=== PATIENT | male | born 1970 | race Caucasian/White ===

== ENCOUNTER → 2021-05-15 10:46 | Outpatient (CLI) | payer SELFPAY ==
--- NOTE | ~2021-05-15 | CT_ITS ---
EXAMINATION: CT chest high resolution wo nd DATE: 05/15/2021 11:22 INDICATION: Weight loss TECHNIQUE: Computed tomography (CT) of the chest was performed without intravenous contrast. The dose -length product (DLP) was 218.53 mGy-cm. Automated exposure control and iterative reconstruction tech nique were employed. COMPARISON: None FINDINGS: There is moderate emphysema. There is a 5 mm nodule of the right lower lobe on image 50. Th e lungs are free of acute opacities. There is no pleural effusion or pneumothorax. Bilateral gynecoma stia is noted. No pathologically enlarged thoracic lymph nodes are identified. The heart size is norm al. There is moderate thoracic spondylosis. IMPRESSION: 1. No CT correlate for weight loss. 2. Moderate emphysema. 3. 5 mm nodule of the right lower lobe. Consider follow-up CT in 12 months. Reviewed, dictated and finalized at location B.
== END ==
PROVIDERS: PCP Internal Medicine; Visit Provider Physician Assistant
DX: R63.4 Abnormal weight loss (principal); J43.9 Emphysema, unspecified; R91.8 Other nonspecific abnormal finding of lung field
CPT/HCPCS: 71250

== ENCOUNTER → 2021-06-02 01:47 | Outpatient (CLI) | payer SELFPAY ==
[2021-06-02 17:56] LABS: SARS-CoV-2 RNA PCR Negative
== END ==
PROVIDERS: PCP Internal Medicine; Visit Provider Internal Medicine
DX: B34.9 Viral infection, unspecified (principal); Z20.822 Contact with and (suspected) exposure to COVID-19
CPT/HCPCS: C9803; U0003; U0005

== ENCOUNTER → 2021-07-08 02:47 | Outpatient (CLI) | payer SELFPAY ==
[2021-07-09 02:21] LABS: SARS-CoV-2 RNA PCR Negative
== END ==
PROVIDERS: PCP Internal Medicine; Visit Provider Internal Medicine
DX: R06.00 Dyspnea, unspecified (principal); Z20.822 Contact with and (suspected) exposure to COVID-19
CPT/HCPCS: C9803; U0003; U0005

== ENCOUNTER → 2022-05-17 10:02 | Outpatient (CLI) | payer SELFPAY ==
--- NOTE | ~2022-05-17 | CT_ITS ---
EXAMINATION: CT lung screening DATE: 05/17/2022 10:16 INDICATION: Personal history of nicotine dependence, current smoker with 42 pack year history TECHNIQUE: Computed tomography (CT) of the chest was performed without intravenous contrast. The dose -length product (DLP) was 67.14 mGy-cm. Automated exposure control and iterative reconstruction techn [employer] were employed. COMPARISON: 05/15/2021 FINDINGS: There is a stable 5 mm nodule in the superior segment of the right lower lobe. No new pulmo nary nodules are identified. There is moderate emphysema. The lungs are free of acute opacities. No p athologically enlarged thoracic lymph nodes are identified. The heart size is normal. No pleural effu yevgeniy or pneumothorax. Bilateral gynecomastia is noted. There is moderate thoracic spondylosis. IMPRESSION: 1. Lung-RADS category 2: Benign appearance or behavior. Continue annual screening with noncontrast lo w-dose chest CT in 12 months. Reviewed, dictated and finalized at location B. E QA TESTER IMPRESSION: 1. Lung-RADS category 2: Benign appearance or behavior. Continue annual screeni ng with noncontrast low-dose chest CT in 12 months.
== END ==
PROVIDERS: PCP Physician Assistant; Visit Provider Nurse Practitioner Family
DX: Z12.2 Encounter for screening for malignant neoplasm of respiratory organs (principal); Z87.891 Personal history of nicotine dependence
CPT/HCPCS: 71271

== ENCOUNTER 2022-08-04 07:26 | Outpatient (CLI) | payer MEDICAID, SELFPAY ==
--- NOTE | 2022-08-04 14:32 | WPDPFTINT ---
PFT Procedure Performed PFT Procedure Performed Spirometry with Pre/Post Bronchodilator Plethysmography (Lung Vol) Diffusing Cap (DLCO) Flow Vol Loop PFT Interpretation Lung volumes were measured with the body plethysmography method. Lung volumes are unremarkable. Spirometry showed diminished expiratory flow rates and a diminished FEV1 to FVC ratio 45%, indicative of obstructive airway disease. Following administration of a bronchodilator there was no significant increase in expiratory flow rates. Lung diffusion capacity is moderately reduced at 49% predicted. The flow volume loop is consistent with emphysema. Impression: Moderate obstructive airway disease with no response to bronchodilators on this testing. Moderately reduced lung diffusion capacity.
--- NOTE | 2022-08-04 14:33 | WPDSIXMINUTE ---
Six Minute Walk Procedure Procedure Performed Pulmonary Stress Test (6 min walk) Six Minute Walk Six Minute Walk: This 6 minute walk test was carried out with the patient breathing ambient air. The pre walk oxyhemoglobin saturation was 100%. The patient walked 304 m with no stops during testing. During the walk the oxyhemoglobin saturation remained in the range of 95% to 100%. Impression: No evidence of oxyhemoglobin desaturation on this testing.
== END 2022-08-04 07:27 | disposition home or self-care (01) ==
LOC: ANHPFT 07:27
PROVIDERS: PCP Physician Assistant; Visit Provider Internal Medicine Pulmonary Disease
DX: J43.9 Emphysema, unspecified (principal); R94.2 Abnormal results of pulmonary function studies
CPT/HCPCS: 94060; 94618; 94726; 94729

== ENCOUNTER 2022-09-07 00:06 | Day surgery (SDC) | payer MEDICAID, SELFPAY ==
[2022-08-23 11:41] VITALS: BMI 20.9
--- NOTE | 2022-09-06 09:31 | WPDANESEPPF ---
Anes - Initial Pre Proc Eval Procedure: Operation Date: 09/07/22 09:00 Proposed Procedures p Colonoscopy - Willard Canela MD Date/Time: 09/06/22 09:31 Surgeon: Willard Canela MD Pre Op Diagnosis: melena Patient Data Age: 52 Gender: M Height: 1.79 m Weight: 67 kg Allergies Allergy/AdvReac Type Severity Reaction Status Date / Time No Known Allergies Allergy Verified 09/07/22 07:42 Home Medications Medication Instructions Recorded Confirmed Type nebulizer accessories #1 ea 10/09/21 09/07/22 Rx trazodone 150 mg tablet 150 mg PO DAILY #90 tabs 03/29/22 09/07/22 Rx albuterol sulfate 90 mcg/actuation 1 - 2 puff inhalation Q4-6H PRN 04/12/22 09/07/22 Rx aerosol inhaler (Ventolin HFA) shortness of breath or wheezing #8.5 grams ipratropium 0.5 mg-albuterol 3 mg See Rx Instructions .Route 07/26/22 09/07/22 Rx (2.5 mg base)/3 mL nebulization .COMPLEX #360 mL soln fluticasone fur. 100 mcg-umeclid 1 inh inhalation DAILY #60 ea 08/25/22 09/07/22 Rx 62.5 mcg-vilant 25 mcg inhalat.powder (Trelegy Ellipta) Patient hx anesthesia problems: none Family hx anesthesia problems: none Results Review: All pre-operative results and documents have been reviewed as part of the pre-operative evaluation. 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 Surgical History Surgical History History of hernia repair Family History Family History Sibling Hypertension Father Family history of cardiovascular disease Patient's father is Acute myocardial infarction Mother Cerebrovascular accident Social History Social History Smoking packs per day: 1 Smoking cigarettes per day: 20.0 Years smoked: 40 Smoking pack-years: 40.00 Smoking status: Current every day smoker Tobacco type: cigarettes Second hand tobacco smoke exposure: No Alcohol intake: never Substance use type: marijuana Other substance usage details: Daily PRN Pain, Edible, Smoke Lack of Transportation: No Lack of Food: Sometimes True Current Housing: I Have Housing Concerned About Future Housing: No Difficulty Paying for Meds: No Currently Unemployed: No Education: High School Diploma/GED Difficulty w/ Childcare or Family Care: No Living arrangements: alone Spiritual care concerns: No Anes - Eval Final PreProcedure Day of Procedure 09/06/22 09:31 Patient weight: normal Heart: regular rate and rhythm Lungs: clear to auscultation and normal air movement Airway: Mallampati scale class II Neurological: alert and oriented Last oral intake: >/= 8 hours ASA classification: III Emergent: no Anesthetic plan: proceed Anesthesia type and monitoring: general GIVS and standard monitoring Results Review: All pre-operative results and documents have been reviewed as part of the pre-operative evaluation. Informed Consent: The patient's anesthetic plan and its attendant risks and benefits were discussed with the patient/family/POA. Questions were solicited and answers provided to the satisfaction of the patient/family/POA.
[2022-09-07 07:32] VITALS: BP 129/93; PULSE 98; RESP 18; TEMP 36; O2SAT 100; BMI 29.7
[2022-09-07] MEDS: LACTATED RINGERS 1,000 ML 150 ML IV CONT (07:51)
--- NOTE | 2022-09-07 08:56 | PM.HPGS ---
History of Present Illness History of Present Illness Consent: Risks, benefits, and alternatives have been discussed and questions answered. Patient agrees to proceed with procedure. Chief complaint: melena Narrative: Abraham Funes is a 52 year old male with intermittent blood in stools, had colonoscopy about 20 years ago Review of Systems Constitutional: Constitutional: Denies headache(s) and Denies weakness Eyes: Eyes: Denies blurry vision ENT: Reports Normal hearing present, Denies headache(s) and Denies neck pain Cardiovascular: Cardiovascular: Denies chest pain and Denies dyspnea Respiratory: Respiratory: Denies dyspnea Gastrointestinal: Gastrointestinal: Reports no additional gastrointestinal complaints Genitourinary: Genitourinary: Denies dysuria Musculoskeletal: Musculoskeletal: Denies neck pain Integumentary/Breasts: Skin/Breast: Denies dry skin Neurologic: Reports Normal hearing present, Denies headache(s) and Denies weakness Psychiatric: Psychiatric: Denies anxiety Endocrine: Endocrine: Denies change in body appearance Hematologic/Lymphatic: Hematologic/Lymphatic: Denies easy bleeding Allergic/Immunologic: Allergic/Immunologic: Denies urticaria PMF Past Medical History Medical History (Updated 09/07/22 @ 08:56 by Willard Canela MD) 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 Hematochezia Surgical History Surgical History History of hernia repair Family History Family History Sibling Hypertension Father Family history of cardiovascular disease Patient's father is Acute myocardial infarction Mother Cerebrovascular accident Social History Social History Smoking packs per day: 1 Smoking cigarettes per day: 20.0 Years smoked: 40 Smoking pack-years: 40.00 Smoking status: Current every day smoker Tobacco type: cigarettes Second hand tobacco smoke exposure: No Alcohol intake: never Substance use type: marijuana Other substance usage details: Daily PRN Pain, Edible, Smoke Lack of Transportation: No Lack of Food: Sometimes True Current Housing: I Have Housing Concerned About Future Housing: No Difficulty Paying for Meds: No Currently Unemployed: No Education: High School Diploma/GED Difficulty w/ Childcare or Family Care: No Living arrangements: alone Spiritual care concerns: No Meds Home Medications and Allergies Home Medications Medication Instructions Recorded Confirmed Type nebulizer accessories #1 ea 10/09/21 09/07/22 Rx trazodone 150 mg tablet 150 mg PO DAILY #90 tabs 03/29/22 09/07/22 Rx albuterol sulfate 90 mcg/actuation 1 - 2 puff inhalation Q4-6H PRN 04/12/22 09/07/22 Rx aerosol inhaler (Ventolin HFA) shortness of breath or wheezing #8.5 grams ipratropium 0.5 mg-albuterol 3 mg See Rx Instructions .Route 07/26/22 09/07/22 Rx (2.5 mg base)/3 mL nebulization .COMPLEX #360 mL soln fluticasone fur. 100 mcg-umeclid 1 inh inhalation DAILY #60 ea 08/25/22 09/07/22 Rx 62.5 mcg-vilant 25 mcg inhalat.powder (Trelegy Ellipta) Allergies Allergy/AdvReac Type Severity Reaction Status Date / Time No Known Allergies Allergy Verified 09/07/22 07:42 Vital Signs Vital Signs - 24 hr 09/07/22 07:32 Temperature 96.8 F L Pulse Rate 98 Respiratory Rate 18 Blood Pressure 129/93 H Pulse Oximetry 100 Oxygen Delivery Room Air Exam Const: General: comfortable and no acute distress HENMT: Face/Nose/Sinus: Normal nares present Eyes: General: appearance normal, both eyes and all related structures Neck: Neck: no JVD Resp: Auscultation: clear to auscultation bilaterally Cardio: Rate: regular rate Rhythm: regular rhythm GI: Inspection: non-distended GI Palp: Yes Soft to p
[2022-09-07 09:54] VITALS: BP 90/66; PULSE 78; RESP 23; O2SAT 97
[2022-09-07 10:04] VITALS: BP 114/78; PULSE 60; RESP 15; O2SAT 100
[2022-09-07 10:14] VITALS: BP 125/89; PULSE 60; RESP 20; O2SAT 100
--- NOTE | 2022-09-07 10:43 | SUR.PHASEII ---
Delay in discharge due to patient needing assistance getting dressed, slower to wake up.
== END 2022-09-07 10:41 | disposition home or self-care (01) ==
PROVIDERS: PCP Physician Assistant; Visit Provider Internal Medicine Gastroenterology
PROC: 0DJD8ZZ Inspection of Lower Intestinal Tract, Via Natural or Artificial Opening Endoscopic (ICD-10-PCS; CPT 45378; principal; 2022-09-07 09:00)
DX: Z12.11 Encounter for screening for malignant neoplasm of colon (principal); D12.8 Benign neoplasm of rectum; D12.7 Benign neoplasm of rectosigmoid junction; K57.30 Diverticulosis of large intestine without perforation or abscess without bleeding; K64.8 Other hemorrhoids; K92.1 Melena; J44.9 Chronic obstructive pulmonary disease, unspecified; Z79.51 Long term (current) use of inhaled steroids; F17.210 Nicotine dependence, cigarettes, uncomplicated; F12.90 Cannabis use, unspecified, uncomplicated
CPT/HCPCS: 45385; 88305; J7120

== ENCOUNTER → 2022-11-29 15:01 | Outpatient (CLI) | payer BC, SELFPAY ==
--- NOTE | ~2022-11-29 | XR_ITS ---
XR lumbar spine 6V w bending 11/29/2022 15:43 Indication: Low back pain Procedure: 7 views lumbar spine including flexion/extension views Comparison: No prior studies for comparison. Findings: Vertebral body heights are maintained. No fracture, subluxation or dislocation. Sacral fora men are symmetric. Pedicles are intact. Vertebral body heights are maintained. There is disc narrowin g at L4-5 and L5-S1. No significant alteration of alignment with flexion/extension. No evidence for s pondylolisthesis. Pedicles intact. Sacral foramen are symmetric. Impression: 1: Mild lumbar spondylosis. Reviewed, dictated and finalized at location L. Impression: 1: Mild lumbar spondylosis.
--- NOTE | ~2022-11-29 | XR_ITS ---
XR thoracic spine 3V 11/29/2022 15:42 Indication: Low back pain Procedure: 3 views thoracic spine Comparison: No prior studies for comparison. Findings: There is mild multilevel thoracic spondylosis with dextroscoliosis. There is mild wedge-sha ped compression deformity of multiple mid and lower thoracic vertebra, likely chronic. No acute fract ure is identified. No paraspinal soft tissue abnormality. Pedicles intact. Impression: 1: Mild wedge-shaped compression deformities of mid and lower thoracic vertebra, likely chronic. 2: Mild thoracic spondylosis with dextroscoliosis. Reviewed, dictated and finalized at location L. Impression: 1: Mild wedge-shaped compression deformities of mid and lower thoracic vertebra , likely chronic. 2: Mild thoracic spondylosis with dextroscoliosis.
== END ==
PROVIDERS: PCP Internal Medicine; Visit Provider Physician Assistant
DX: M47.894 Other spondylosis, thoracic region (principal); M47.896 Other spondylosis, lumbar region
CPT/HCPCS: 72072; 72114

== ENCOUNTER 2023-09-30 09:27 | Outpatient (CLI) | payer OTHER, SELFPAY ==
--- NOTE | ~2023-09-30 | XR_ITS ---
XR hip BI 2V w AP pelvis DATE: 09/30/2023 09:48 INDICATION: Bilateral chronic hip pain TECHNIQUE: AP pelvis. AP and lateral views of each hip. COMPARISON: None FINDINGS: No pelvic fracture or bone destruction. The pubic symphysis and sacroiliac joints are intac t. Hip joint spaces are symmetric and relatively well preserved. No fracture, dislocation, avascular necrosis or bone destruction of either hip is evident. IMPRESSION: No significant abnormality of the pelvis or hips Reviewed, dictated and finalized at location B.
== END 2023-09-30 09:28 | disposition home or self-care (01) ==
PROVIDERS: PCP Physician Assistant; Visit Provider Physician Assistant
DX: M25.559 Pain in unspecified hip (principal)
CPT/HCPCS: 73521

== ENCOUNTER 2023-10-13 08:47 | Outpatient (CLI) | payer OTHER, SELFPAY ==
--- NOTE | ~2023-10-13 | CT_ITS ---
Clinical Indication: Chest pain CT Scan of the Chest with Contrast: Technique: Contiguous sections were acquired throughout the chest after intravenous administration of 100 cc of Omnipaque 350. Dose reduction technique was used on this scan by utilizing automated expos ure control and iterative reconstruction technique. The dose-length product (DLP) was 189.86 mGy-cm. COMPARISON: 722 Findings: There is no evidence of any significant mediastinal, hilar or axillary lymphadenopathy. There is no f illing defect in the pulmonary arterial tree to suggest pulmonary embolus. There is no evidence of ao rtic dissection or aneurysm. There is no evidence of pleural or pericardial effusion. There is moderate to severe emphysema. 3 mm nodule noted in the superior segment left lower lobe. Images through the upper abdomen reveal no abnormalities. Impression: No evidence of pulmonary embolus, aortic dissection, or aortic aneurysm. Moderate to severe emphysema. 3 mm superior segment left lower lobe pulmonary nodule, not clearly seen on prior exam. According to Fleischner Society criteria, for a low-risk patient, no further follow-up required. [facility], consider 12 month follow-up CT. Reviewed, dictated and finalized at location . Impression: No evidence of pulmonary embolus, aortic dissection, or aortic aneurysm. Moderate to severe emphysema. 3 mm superior segment left lower lobe pulmonary nodule, not clearly seen on laura or exam. According to Fleischner Society criteria, for a low-risk patient, no f urther follow-up required. For a high-risk patient, consider 12 month follow-up CT.
== END 2023-10-13 08:48 | disposition home or self-care (01) ==
PROVIDERS: PCP Physician Assistant; Visit Provider Nurse Practitioner Family
DX: R07.9 Chest pain, unspecified (principal); R04.2 Hemoptysis; J43.9 Emphysema, unspecified
CPT/HCPCS: 71275; Q9967

== ENCOUNTER 2023-11-01 07:27 | Outpatient (CLI) | payer OTHER, SELFPAY ==
--- NOTE | ~2023-11-01 | MR_ITS ---
EXAMINATION: MR hip LT wo con DATE: 11/01/2023 08:37 INDICATION: Left hip pain TECHNIQUE: Magnetic resonance imaging (MRI) of the left hip was performed without intravenous contra st. Sequences included full-field axial PD-weighted FS FSE and T1-weighted FSE, coronal of the pelvis with PD-weighted FS FSE, T2-weighted FSE and T1-weighted FSE, small field of view of the left hip w ith axial PD-weighted FS FSE, sagittal PD-weighted FS FSE, coronal PD-weighted FS FSE and coronal T2 weighted FSE. Additional radial T1-weighted FGR oriented orthogonal to the acetabular rim were obtai krysta for evaluation of the labrum. COMPARISON: None FINDINGS: Bones/labrum/cartilage: Alignment is normal. Small low signal intensity bone island at the right femoral neck and left innomi breezy bone. No fracture, avascular necrosis or pathologic marrow replacing process. Left acetabular la katja is normal. Mild left hip osteoarthritis. Similar normal labrum and mild osteoarthritis suggested at the right hip but not diagnostically evaluated on the larger [id number] images. Fluid: Symmetric physiologic amount of fluid within both hip joints. Mild increased fluid signal at the grea ter trochanter consistent with mild gluteus minimus and trochanteric bursitis. Soft tissues: Normal and symmetric muscle bulk and signal in the pelvis and visualized proximal thighs. Mild left g luteus medias and minimus tendinopathy with small partial tear at the posterior aspect of the footpla te of the left gluteus minimus tendon which involves approximately one third of the cross-sectional a tammy of the tendon. Minimal right gluteus minimus tendinopathy without tear. The bilateral iliopsoas, proximal hamstring and remaining gluteal tendons are normal. Prostatomegaly measuring 4.6 x 3.5 cm. L imited evaluation of visceral organs of the pelvis is otherwise unremarkable. No pathologically enla rged pelvic/inguinal lymphadenopathy. IMPRESSION: 1. Mild left gluteus minimus and trochanteric bursitis with mild tendinopathy and partial-thickness t ear at the insertion of the left gluteus minimus tendon. 2. Mild left hip osteoarthritis with normal labrum. Reviewed, dictated and finalized at location A. IMPRESSION: 1. Mild left gluteus minimus and trochanteric bursitis with mild tendinopathy a nd partial-thickness tear at the insertion of the left gluteus minimus tendon. 2. Mild left hip osteoarthritis with normal labrum.
== END 2023-11-01 07:28 | disposition home or self-care (01) ==
LOC: ANHIMG 07:29
PROVIDERS: PCP Physician Assistant; Visit Provider Orthopaedic Surgery
DX: M70.62 Trochanteric bursitis, left hip (principal); M16.12 Unilateral primary osteoarthritis, left hip
CPT/HCPCS: 73721

== ENCOUNTER 2023-12-13 00:18 | Day surgery (SDC) | payer OTHER, SELFPAY ==
[2023-11-23 14:26] VITALS: BMI 20.2
[2023-12-13 08:17] VITALS: BP 116/77; PULSE 72; RESP 20; TEMP 35.9; O2SAT 100; BMI 19.3
--- NOTE | 2023-12-13 08:23 | WPDANESEPPF ---
Anes - Initial Pre Proc Eval Procedure: Operation Date: 12/13/23 09:30 Proposed Procedures p Colonoscopy - Willard Canela MD Date/Time: 12/13/23 08:23 Surgeon: Willard Canela MD Pre Op Diagnosis: polyp of colon Patient Data Age: 53 Gender: M Height: 1.78 m Weight: 60.9 kg Last Vital Signs Temp 96.6 F L 12/13/23 08:17 Pulse 72 12/13/23 08:17 Resp 20 12/13/23 08:17 BP 116/77 12/13/23 08:17 Pulse Ox 100 12/13/23 08:17 O2 Del Method Room Air 12/13/23 08:17 Allergies Allergy/AdvReac Type Severity Reaction Status Date / Time No Known Allergies Allergy Verified 12/13/23 08:14 Home Medications Medication Instructions Recorded Confirmed Type trazodone 150 mg tablet 150 mg PO DAILY #90 tabs 08/30/23 12/13/23 Rx tamsulosin 0.4 mg capsule 0.4 mg PO DAILY #90 caps 09/15/23 12/13/23 Rx Trelegy Ellipta 100 mcg-62.5 1 inh inhalation Q24H #60 ea 09/29/23 12/13/23 Rx mcg-25 mcg powder for inhalation ([id number]) albuterol sulfate 90 mcg/actuation See Rx Instructions .Route 09/29/23 12/13/23 Rx aerosol inhaler .COMPLEX #9 grams betamethasone valerate 0.1 % 1 applic topical BID PRN rash #45 11/03/23 12/13/23 Rx topical cream grams diclofenac sodium 75 mg 75 mg PO BID #60 tabs 12/01/23 12/13/23 Rx tablet,delayed release loratadine 10 mg tablet (Claritin) 10 mg PO DAILY PRN Allergies 12/13/23 12/13/23 History Patient hx anesthesia problems: none Family hx anesthesia problems: none Results Review: All pre-operative results and documents have been reviewed as part of the pre-operative evaluation. 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 Hematochezia Surgical History Surgical History History of hernia repair 2 times Hx of colonoscopy Family History Family History Sibling Hypertension Father Family history of cardiovascular disease Patient's father is Acute myocardial infarction Mother Cerebrovascular accident Social History Social History Smoking packs per day: 1 Smoking cigarettes per day: 20.0 Years smoked: 40 Smoking pack-years: 40.00 Smoking status: Current every day smoker Tobacco type: cigarettes Second hand tobacco smoke exposure: No Alcohol intake: never Substance use: current Substance use type: marijuana Other substance usage details: Daily PRN Pain, Edible, Smoke Last use: 11/22/23 Do You Feel Safe in your Home?: Yes Lack of Transportation: No Lack of Food: Sometimes True Current Housing: I Have Housing Concerned About Future Housing: YES Difficulty Paying Gas/Electric Bills: No Difficulty Paying for Meds: YES Currently Unemployed: YES Education: High School Diploma/GED Difficulty w/ Childcare or Family Care: No Living arrangements: alone Occupation/Education: unemployed Gender identity (if verbalized by the patient): Male Spiritual care concerns: No Anes - Eval Final PreProcedure Day of Procedure 12/13/23 08:23 Patient weight: normal Heart: regular rate and rhythm Lungs: clear to auscultation Airway: Mallampati scale class II Neurological: alert and oriented Last oral intake: >/= 8 hours ASA classification: III Emergent: no Anesthetic plan: proceed Anesthesia type and monitoring: general GIVS and standard monitoring Results Review: All pre-operative results and documents have been reviewed as part of the pre-operative evaluation. Informed Consent: The patient's anesthetic plan and its attendant risks and benefits were discussed with the patient/family/POA. Questions were solicited and answers provided to the satisfaction of the pa
[2023-12-13] MEDS: LACTATED RINGERS 1,000 ML 150 ML IV CONT (08:26)
--- NOTE | 2023-12-13 09:00 | PM.HPGS ---
History of Present Illness History of Present Illness Consent: Risks, benefits, and alternatives have been discussed and questions answered. Patient agrees to proceed with procedure. 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 Hematochezia Surgical History Surgical History History of hernia repair 2 times Hx of colonoscopy Family History Family History Sibling Hypertension Father Family history of cardiovascular disease Patient's father is Acute myocardial infarction Mother Cerebrovascular accident Social History Social History Smoking packs per day: 1 Smoking cigarettes per day: 20.0 Years smoked: 40 Smoking pack-years: 40.00 Smoking status: Current every day smoker Tobacco type: cigarettes Second hand tobacco smoke exposure: No Alcohol intake: never Substance use: current Substance use type: marijuana Other substance usage details: Daily PRN Pain, Edible, Smoke Last use: 11/22/23 Do You Feel Safe in your Home?: Yes Lack of Transportation: No Lack of Food: Sometimes True Current Housing: I Have Housing Concerned About Future Housing: YES Difficulty Paying Gas/Electric Bills: No Difficulty Paying for Meds: YES Currently Unemployed: YES Education: High School Diploma/GED Difficulty w/ Childcare or Family Care: No Living arrangements: alone Occupation/Education: unemployed Gender identity (if verbalized by the patient): Male Spiritual care concerns: No Meds Home Medications and Allergies Home Medications Medication Instructions Recorded Confirmed Type trazodone 150 mg tablet 150 mg PO DAILY #90 tabs 08/30/23 12/13/23 Rx tamsulosin 0.4 mg capsule 0.4 mg PO DAILY #90 caps 09/15/23 12/13/23 Rx Trelegy Ellipta 100 mcg-62.5 1 inh inhalation Q24H #60 ea 09/29/23 12/13/23 Rx mcg-25 mcg powder for inhalation (inahmvarlan-mbhkrrafm-rtyqkuse) albuterol sulfate 90 mcg/actuation See Rx Instructions .Route 09/29/23 12/13/23 Rx aerosol inhaler .COMPLEX #9 grams betamethasone valerate 0.1 % 1 applic topical BID PRN rash #45 11/03/23 12/13/23 Rx topical cream grams diclofenac sodium 75 mg 75 mg PO BID #60 tabs 12/01/23 12/13/23 Rx tablet,delayed release loratadine 10 mg tablet (Claritin) 10 mg PO DAILY PRN Allergies 12/13/23 12/13/23 History Allergies Allergy/AdvReac Type Severity Reaction Status Date / Time No Known Allergies Allergy Verified 12/13/23 08:14 Vital Signs Vital Signs - 24 hr 12/13/23 08:17 Temperature 96.6 F L Pulse Rate 72 Respiratory Rate 20 Blood Pressure 116/77 Pulse Oximetry 100 Oxygen Delivery Room Air Exam Const: General: comfortable and no acute distress HENMT: Face/Nose/Sinus: Normal nares present Eyes: General: appearance normal, both eyes and all related structures Neck: Neck: no JVD Resp: Auscultation: clear to auscultation bilaterally Cardio: Rate: regular rate Rhythm: regular rhythm GI: Inspection: non-distended GI Palp: Yes Soft to palpation Skin: General skin exam: normal color Neuro: General: gait normal Speech: normal speech Extrem: General: normal to inspection Psych: Mental Status: mental status grossly normal Assessment and Plan Assessment and plan (1) Adenomatous colon polyp: Code(s): D12.6 - Benign neoplasm of colon, unspecified Status: Acute Assessment and Plan: colonoscopy
[2023-12-13 09:21] VITALS: BP 101/66; PULSE 71; RESP 13; O2SAT 96
[2023-12-13 09:31] VITALS: BP 109/68; PULSE 69; RESP 20; O2SAT 100
[2023-12-13 09:41] VITALS: BP 120/77; PULSE 61; RESP 20; O2SAT 100
== END 2023-12-13 09:55 | disposition home or self-care (01) ==
PROVIDERS: PCP Physician Assistant; Visit Provider Internal Medicine Gastroenterology
PROC: 0DJD8ZZ Inspection of Lower Intestinal Tract, Via Natural or Artificial Opening Endoscopic (ICD-10-PCS; CPT 45378; principal; 2023-12-13 09:30)
DX: Z09 Encounter for follow-up examination after completed treatment for conditions other than malignant neoplasm (principal); D12.7 Benign neoplasm of rectosigmoid junction; K52.9 Noninfective gastroenteritis and colitis, unspecified; K64.8 Other hemorrhoids; J44.9 Chronic obstructive pulmonary disease, unspecified; F17.210 Nicotine dependence, cigarettes, uncomplicated; F12.90 Cannabis use, unspecified, uncomplicated; Z79.51 Long term (current) use of inhaled steroids
CPT/HCPCS: 45385; 45380; 88305; J2704; J7120

== ENCOUNTER 2023-12-15 08:00 | Outpatient (RCR) | payer OTHER, SELFPAY ==
--- NOTE | 2023-10-31 11:24 | OPREHPOC ---
Outpatient Therapy Plan of Care This is a Multidisciplinary Plan of Care that may contain components documented by all disciplines (PT, OT, and ST.) PT Problem 1 PT Problem #1 Knowledge Deficit PT Goal 1 [place]al [place] with HEP Target Visit 4 PT Problem 2 PT Problem #2 Pain PT Goal 1 Goal Report no pain greater than 2/10 when ambulating for 300'+ Target Visit 8 PT Problem 3 PT Problem #3 Impaired Flexibility PT Goal 1 Goal Demonstrate -20 degrees hamstring restriction bilaterally to reduce pelvic posterior chain pull Target Visit 8 PT Goal 2 Goal Demonstrate minimal to no restriction with piriformis for improved gross functional hip mobility Target Visit 8 PT Problem 4 PT Problem #4 Impaired Range of Motion PT Goal 1 Goal Improve genevieve hip abduction ROM to 40 degrees to reduce capsular restriction with extension and gait Target Visit 8 PT Problem 5 PT Problem #5 Impaired Strength PT Goal 1 Goal Improve genevieve hip abduction strength to 4/5 to improve lateral stability with ADLs Target Visit 8
--- NOTE | 2023-10-31 11:24 | PTOPEVAL1 ---
Assessment and note entered by Efe Zhu, PT Evaluation Information Assessment Status Evaluation Diagnosis Left hip sprain, low back pain Onset March 2023 Subjective Information Reports that he was just walking about 7 months ago. Noticed a shooting pain in anterior lateral hip and posterior hip. Denies groin pain. He has history of genevieve inguinal hernia repair. Limited by back pain and hip pain with walking and ADLs. Pain is better when sleeping and able to lie down, but he is up a lot during the night. Reports that he has severe respiratory issues and is limited in endurance and distance. Reported Pain Level Pain Score 4: Self Report Assessment PT Clinical Summary Patient currently presenting with significantly limited hip motion and pain with gross hip mobility. Patient had very minimal tolerance to all hip motion and lumbar decompression activity. Will need to continue to be monitored for consistency with these pain symptoms. Receiving MRI tomorrow and will await findings of structure to assess progress of POC. Will benefit from skilled therapy to address listed deficits. Plan of Care Interventions Gait Training,Manual Therapy,Neuro Re-education, Therapeutic Activities,Therapeutic Exercise PT Services Indicated Yes Treatment Frequency and 2x/week for 8 visits Duration These treatments will address the objective and functional deficits as defined above. The patient will be advanced safely and appropriately in order for the patient to progress towards his/her prior level of function. Additional exercises will be introduced and as well as a comprehensive home exercise program upon discharge, if needed, ?to ensure carryover of functional gains achieved in the clinic. This treatment plan has been reviewed and agreement upon by the patient.
--- NOTE | 2023-11-21 08:47 | PCPTNOTE ---
Pt canceled due to holding appts. till after his injection on November 30. Pt has rescheduled all remaining appts. till after his injection.
--- NOTE | 2023-12-15 08:43 | PTOPDC ---
Assessment and note entered by Petty Lombardo, PT Discharge Report Assessment Status Discharge Diagnosis Left hip sprain, low back pain Onset March 2023 Subjective Information feel like therapy does not help--leave therapy hurting and limping more; had injection in hip and that helped a little; go back to Dr Lau January 16; do not have an appointment yet for Dr Rodriguez had the MRI of my hip and there was not anything was on it; do not want any more therapy. realizes he has pain and has to deal with it, does not want to make his hip hurt any more with therapy. Reported Pain Level Pain Score Self Report Additional Pain Score Comments pain range in the past week 2- 8/10; pain L lateral hip the most and some pain in buttock; increase pain: standing and full weight on L leg; standing exercises during PT;more activity standing and walking; more pain as the day goes on decrease pain: stim helps, ice, heat discussed home stim unit--he wants to talk to dr about it; also have pain in back, R knee; Assessment PT Clinical Summary Abraham has received a total of 8 PT sessions. Compared to the initial eval: pain range is the same at 2-8/10 and LE functional scale, self rating of 50% is the same; continues to have tightness over L hamstring and piriformis, with increase hip abduction ROM; increase L hip pain with L hip piriformis and ER motions; increase in L hip strength; education completed for HEP and pain control-- activity monitor and home stim for pain. The goals were partially achieved. Discharge PT services. Plan of Care PT Services Indicated No
== END 2023-12-15 09:20 | disposition home or self-care (01) ==
LOC: ANHPT 08:00
PROVIDERS: PCP Physician Assistant; Visit Provider Orthopaedic Surgery
DX: S73.102D Unspecified sprain of left hip, subsequent encounter (principal); M54.50 Low back pain, unspecified
CPT/HCPCS: 97014; 97110; 97140; 97161; 97530; G0283

== ENCOUNTER 2024-03-18 13:25 | Emergency (ER) | payer OTHER, SELFPAY ==
--- NOTE | ~2024-03-18 | CT_ITS ---
EXAMINATION: CT abdomen pelvis w con DATE: 03/18/2024 16:34 INDICATION: Left upper quadrant abdominal pain TECHNIQUE: Computed tomography (CT) of the abdomen and pelvis was performed with 100 CC Omnipaque 350 intravenous contrast. Automated exposure control and iterative reconstruction technique were employe d. Exam dose: 180.12 mGy-cm total exam DLP. COMPARISON: None. FINDINGS: Prominent emphysematous changes are noted in the included lower lung zones. Minimal discoid atelectasis or scarring at both lung bases. Heart size is within normal limits. No pericardial or pleural effusion. The gallbladder is contracted but the wall is mildly thickened at approximately 3 mm, with enhancemen t of the wall of the gallbladder. There is suggestion of stones within the gallbladder lumen but ultr asound would be more definitive for confirmation or exclusion of cholelithiasis. No significant pericholecystic fluid or fat stranding is noted. No bile duct or pancreatic duct dilatation. The liver, spleen, pancreas and adrenal glands as well as the kidneys are unremarkable. The urinary bladder is relatively evacuated. Mild prostate enlargement. There is extensive atherosclerotic calcification but normal caliber of the abdominal aorta and iliac arteries and femoral arteries. No intraperitoneal or retroperitoneal or pelvic mass lesion or adenopathy or ascites is evident. No bowel obstruction or intraperitoneal free air is detected. The appendix is not definitively localized. There is no evidence of inflammatory change in the right lower quadrant. Moderately severe degenerative disc disease at T11-12 and L5-S1. No suspicious osteolytic or osteoblastic lesions are noted. IMPRESSION: Emphysema Mild thickening and enhancement of the gallbladder wall with suggestion of possible cholelithiasis; c onsider gallbladder ultrasound examination for more definitive evaluation Reviewed, dictated and finalized at [facility]. Reviewed, dictated and finalized at [facility]. IMPRESSION: Emphysema Mild thickening and enhancement of the gallbladder wall with suggestion of poss ible cholelithiasis; consider gallbladder ultrasound examination for more defin itive evaluation
--- NOTE | ~2024-03-18 | XR_ITS ---
EXAMINATION: XR chest 2V DATE: 03/18/2024 16:30 INDICATION: Left rib pain. Left upper quadrant abdominal pain. TECHNIQUE: Frontal and lateral views of the chest were obtained. COMPARISON: Chest 2 views 01/02/2012, CT abdomen and pelvis 03/18/2024 FINDINGS: The lungs are hyperexpanded with lucencies, consistent with emphysema. A calcified left camilo g nodule is consistent with old granulomatous disease. No pleural effusion or pneumothorax. The heart size is normal. There is mild chronic anterior wedging of multiple vertebral bodies. IMPRESSION: 1. Emphysema. Reviewed, dictated and finalized at [facility]. IMPRESSION: 1. Emphysema.
[2024-03-18 14:02] VITALS: BP 132/70; PULSE 80; RESP 17; TEMP 36.4; O2SAT 100
[2024-03-18 15:51] LABS: Basophils Absolute Auto 0.1 K/mm3 (0.0-0.1); Basophils Percent Auto 0.9 % (0.2-1.2); Eosinophils Absolute Auto 0.2 K/mm3 (0-0.3); Eosinophils Percent Auto 2.7 % (0-4.4); Hematocrit 40.6 % (42.0-52.0); Hemoglobin 13.2 g/dL (14.0-18.0); Immature Granulocyte Absolute 0.02 K/mm3 (0.00-0.031); Immature Granulocyte Percent A 0.3 % (0-0.5); Lymphocytes Absolute Auto 1.91 K/mm3 (0.9-3.2); Lymphocytes Percent Auto 24.5 % (18.3-44.2); Mean Corpuscular HGB Conc 32.5 g/dl (32-36); Mean Corpuscular Hemoglobin 31.1 pg (26-34); Mean Corpuscular Volume 95.8 fl (80-100); Mean Platelet Volume 8.5 fl (7.4-10.4); Monocytes Absolute Auto 0.7 K/mm3 (0.1-0.6); Monocytes Percent Auto 9.4 % (2.6-8.5); Neutrophils Absolute Auto 4.9 K/mm3 (1.3-6.7); Neutrophils Percent Auto 62.2 % (45.5-73.1); Platelet Count Result 314 k/mm3 (150-375); Red Blood Count 4.24 M/mm3 (4.6-6.20); Red Cell Distribution Width 13.4 % (11.5-14.5); White Blood Count 7.8 K/mm3 (4.5-10.0)
[2024-03-18 16:05] LABS: Alanine Aminotransferase 21 U/L (6-50); Albumin Level 4.3 g/dL (3.5-5.1); Alkaline Phosphatase 62 U/L (38-126); Anion Gap 7 mmol/L (4-12); Aspartate Amino Transferase 29 U/L (17-59); Bilirubin,Total 0.6 mg/dL (0.2-1.3); Blood Urea Nitrogen 18 mg/dL (9-20); Calcium 8.9 mg/dL (8.4-10.2); Carbon Dioxide 27 mmol/L (22-30); Chloride 99 mmol/L (98-107); Estimated CRCL calculation 65 ml/min; Estimated Glomerular Filt Rate > 60; Glucose 78 mg/dL (65-110); Lipase 81 U/L (23-300); Potassium 3.9 mmol/L (3.4-5.0); Sodium 133 mmol/L (137-145)
--- NOTE | 2024-03-18 16:05 | ED.ABDPAIN ---
HPI - Abdominal Pain General Chief Complaint: Abdominal Pain <GABY Powell Last Filed: 03/18/24 21:12> Stated Complaint: L rib pain <GABY Powell Last Filed: 03/18/24 21:12> Time Seen by Provider: 03/18/24 15:29 <GABY Powell Last Filed: 03/18/24 21:12> Source: patient <GABY Powell Last Filed: 03/18/24 21:12> Mode of arrival: ambulatory <GABY Powell Last Filed: 03/18/24 21:12> Limitations: no limitations <GABY Powell Last Filed: 03/18/24 21:12> History of Present Illness HPI narrative: Patient is a 53 y/o male, with PMH of emphysema still smoking, colon CA, who presents the ED with report of left upper abdominal pain. Patient reports he has had pain over the last 1 month. Intermittent sharp stabbing pains. States it has been worsening over the last few days. Saw his primary care doctor for this last week and was referred to the ED, however patient was unable to come until today. Patient sees pain management for chronic arthritis pain and is prescribed buprenorphine pain patches. He has been wearing this patch without relief. Reports intermittent nausea and vomiting and an unintentional 12lb weight loss over the past 2 weeks. Denies diarrhea, constipation. Denies fevers, night sweats, shortness breath, pleuritic pain. Patient reports history of colon cancer 2 years ago and underwent surgery for this. He did have a a colonoscopy earlier this year which was normal. <GABY Powell Last Filed: 03/18/24 21:12> Related Data Allergies/Adverse Reactions: Allergies Allergy/AdvReac Type Severity Reaction Status Date / Time No Known Allergies Allergy Verified 03/18/24 16:04 <GABY Powell Last Filed: 03/18/24 21:12> Review of Systems Review of Systems: All systems reviewed & are unremarkable except as noted in HPI. <Valentine Burgess PA-C - Last Filed: 03/18/24 21:12> All systems reviewed & are unremarkable except as noted in HPI and below <Valentine Burgess PA-C - Last Filed: 03/18/24 21:12> [facility] Past Medical History Medical History: Medical History Adenomatous colon polyp 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 Hematochezia <Valentine Burgess PA-C - Last Filed: 03/18/24 21:12> Surgical History Surgical History: Surgical History History of hernia repair 2 times Hx of colonoscopy <Valentine Burgess PA-C - Last Filed: 03/18/24 21:12> Family History Family History: Family History Sibling Hypertension Father Family history of cardiovascular disease Patient's father is Acute myocardial infarction Mother Cerebrovascular accident <Valentine Burgess PA-C - Last Filed: 03/18/24 21:12> Social History Social History: Social History Smoking packs per day: 1 Smoking cigarettes per day: 20.0 Years smoked: 40 Smoking pack-years: 40.00 Smoking status: Current every day smoker Tobacco type: cigarettes Second hand tobacco smoke exposure: No Alcohol intake: never Substance use: current Substance use type: marijuana Other substance usage details: Daily PRN Pain, Edible, Smoke Last use: 11/22/23 Do You Feel Safe in your Home?: No Lack of Transportation: No Lack of Food: Sometimes True Current Housing: Decline to Answer Concerned About Future Housing: Decline to Answer Difficulty Paying Gas/Electric Bills: Decline to Answer Difficulty Paying for Meds: Decline to Answer Currently Unemployed: Decline to Answer Education: Decline to Answer Difficulty w/ Childcare or Family Care: D
[2024-03-18 16:11] LABS: Add Urine Microscopic? YES; Appearance Urine Clear (Clear); Bacteria Urine None Seen /hpf; Bilirubin Urine 1+ (Negative); Blood Urine Negative (Negative); Color Urine Dark Yellow (Yellow); Glucose Urine UA Negative (Negative); Ketones Urine Trace mg/dL (Negative); Leukocyte Esterase Ur Trace LEU/UL (Negative); Mucus Urine Present /lpf; Need Manual Microscopic Reviewed; Nitrate Urine Negative (Negative); Protein Urine Trace mg/dL (Negative); RBC Urine 0-2 /hpf (0-2); Specific Grav Ur 1.031 (1.001-1.035); Squamous Epithelial Cell Urine Occasional /hpf (Few); pH Urine 5.5 (5.0-9.0)
[2024-03-18 18:45] VITALS: BP 132/85; PULSE 79; RESP 20; O2SAT 96
== END 2024-03-18 18:46 | disposition home or self-care (01) ==
PROVIDERS: Emergency Provider Physician Assistant
DX: R10.12 Left upper quadrant pain (principal); K82.9 Disease of gallbladder, unspecified; F17.210 Nicotine dependence, cigarettes, uncomplicated; J44.9 Chronic obstructive pulmonary disease, unspecified
CPT/HCPCS: 36415; 71046; 74177; 80053; 81001; 83690; 85025; 87086; 99284; Q9967

== ENCOUNTER 2024-03-27 07:39 | Outpatient (CLI) | payer OTHER, SELFPAY ==
--- NOTE | ~2024-03-27 | US_ITS ---
Limited ABDOMINAL ULTRASOUND Ordering provider: Cole Lindsay DO History: . R10.11 - Right upper quadrant pain . Comparison: None. FINDINGS: LIVER: Normal size and echotexture. No focal hepatic lesions or perihepatic fluid collections are moe ntified. Portal vein flow is normal. GALLBLADDER: Unremarkable. No evidence for stones, sludge, gallbladder wall thickening or pericholecy stic fluid collections. The wall thickness is 2 mm. A negative sonographic Ross's sign was noted. BILIARY DUCTS: No evidence for intra or extrahepatic biliary dilation. Common bile duct measures 3.5 mm in diameter which is within normal limits. PANCREAS: Normal echotexture and size. Prominent pancreatic duct measuring 2.4 mm. UPPER ABDOMINAL AORTA: Normal in caliber. IVC: Patent. FREE FLUID: None. IMPRESSION: Slightly prominent pancreatic duct. Otherwise, Unremarkable limited ultrasound of the abdomen. Reviewed, dictated and finalized at location [facility].
== END 2024-03-27 07:40 | disposition home or self-care (01) ==
LOC: ANHIMG 07:39
PROVIDERS: Visit Provider Internal Medicine
DX: K86.89 Other specified diseases of pancreas (principal); R10.11 Right upper quadrant pain
CPT/HCPCS: 76705

== ENCOUNTER 2024-04-18 15:13 | Outpatient (CLI) | payer OTHER, SELFPAY ==
[2024-04-18 15:56] LABS: CRP < 0.5 mg/dL (<1.0)
[2024-04-18 16:07] LABS: Hemoglobin A1C 4.9 % (<5.7)
[2024-04-18 16:33] LABS: HIV 1/2 Ab P24 Ag Result Negative (Negative)
[2024-04-18 17:43] LABS: Hepatitis C Virus Antibody Negative (Negative)
[2024-04-23 16:04] LABS: Testosterone Total 386 ng/dL (250-1100)
== END 2024-04-18 15:14 | disposition home or self-care (01) ==
LOC: ANHLAB 15:15
PROVIDERS: Visit Provider Internal Medicine
DX: R53.83 Other fatigue (principal); R63.4 Abnormal weight loss; R73.9 Hyperglycemia, unspecified
CPT/HCPCS: 36415; 83036; 84403; 86140; 86703; 86803; G0432

== ENCOUNTER 2024-04-27 10:30 | Outpatient (RCR) | payer OTHER, SELFPAY ==
--- NOTE | 2024-02-10 14:24 | OPREHPOC ---
Outpatient Therapy Plan of Care This is a Multidisciplinary Plan of Care that may contain components documented by all disciplines (PT, OT, and ST.) PT Problem 1 PT Problem #1 Knowledge Deficit PT Goal 1 Goal *indep with aquatic HEP Target Visit 6 PT Problem 2 PT Problem #2 Pain PT Goal 1 Goal 1* pt report pain at worst of 6/10 2* Oswestry self assessment rating of 34% limitation in activity level Target Visit 6 PT Problem 3 PT Problem #3 Impaired Functional Mobility PT Goal 1 Goal 1* 5 reps sit/stand time of 22 seconds 2* 2 minute walking test distance of 375' Target Visit 6
--- NOTE | 2024-02-10 14:25 | PTOPEVAL1 ---
Assessment and note entered by Petty Lombardo, PT Evaluation Information Assessment Status Evaluation Diagnosis trochanteric bursitis L hip,lumbar pain, R shoulder pain,L shoulder pain ICD-10 Condition Codes (PT) Pain in low back M54.50 Onset one year Subjective Information chronic pain, increased over the past year; back, L hip, R and L shoulder, R Knee; MRI- R hip glut tendinopathy with mild to mod OA; had injection in hip- gave some relief, still hurts; to have MRI of lumbar-- not yet scheduled; previous PT made his pain worse and does not want to have leg pulled, do exercises and get pain worse; wants him to try water exercises and he will try them. Activity: does all home and self care activities, with increase pain; now living with his dad, to assist him due to Alzheimer's and decline in his dad's status. 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 Reported Pain Level Pain Score Self Report Additional Pain Score Comments pain range in the past week: 3-8/10; low back, L hip, R knee, L shoulder pain; overall body pain pain is getting worse; Assessment PT Clinical Summary Abraham has multiple diagnosis' and areas of pain. Oswestry self assessment functional score of 42% limitation in activity level. He reports that he is able to do everything around the house and to assist his dad but pain is increased with the activity. His medical history includes issues with chronic pain and respiratory--COPD, emphysema and decreased lung function, with monitoring of a spot on his lung. He has had PT here in the past and reports more pain after therapy and did not want that again, but agreed to try aquatic therapy. With the evaluation: supine UE and LE active ranges are WNL with pain
--- NOTE | 2024-03-09 15:18 | PCPTNOTE ---
appt for today canceled by PT------pt to dept and stated since in the pool on 03-06, had itchy rash the next morning and still bothering him. He has been putting cortisone cream on it. The red area is on his anterior trunk- light red with small bumps. Discussed with pt he cannot get in the water with rash and do not want to cause further irritation to his skin. He does not report any history of skin issues or allergies. He also reports pain of 9/10 in his L hip, other areas of pain at 7-8/10. He states after last aquatic session hip has been more painful--stairs and the exercises hurt his hip and more problems with sleeping--slept total of 13 hours since last here 3 days ago. Pt is not able to tolerate any land activities, today's appt canceled. Discussed his next appt and if rash continues and pain increased, to call, let us know and cancel that appointment.
--- NOTE | 2024-03-15 13:05 | PCPTNOTE ---
Pt canceled appt today due to increased pain.
--- NOTE | 2024-04-20 09:00 | OPREHPOC ---
Outpatient Therapy Plan of Care This is a Multidisciplinary Plan of Care that may contain components documented by all disciplines (PT, OT, and ST.) PT Problem 1 PT Problem #1 Knowledge Deficit PT Goal 1 Goal / Goal Update *indep with aquatic HEP Target Visit 6 Progress Not Met PT Goal 2 Goal / Goal Update 04-20-24 progress goal not met-- pt not able to tolerate aquatic exercises NEW GOALS: * indep with HEP Target Visit 9 PT Problem 2 PT Problem #2 Pain PT Goal 1 Goal / Goal Update 1* pt report pain at worst of 12/18 2* Oswestry self assessment rating of 34% limitation in activity level Target Visit 6 Progress Not Met PT Goal 2 Goal / Goal Update 04-20-24 progress goals not met continue towards goals Target Visit 9 PT Problem 3 PT Problem #3 Impaired Functional Mobility PT Goal 1 Goal / Goal Update 1* 5 reps sit/stand time of 22 seconds 2* 2 minute walking test distance of 375' Target Visit 6 Progress Met PT Goal 2 Goal / Goal Update 04-20-24 progress goals not met NEW GOALS: 1*5 reps sit/stand time of 18 seconds 2* 2 minute walking test distance of 525' Target Visit 9 PT Problem 4 PT Problem #4 Impaired Strength PT Goal 1 Goal / Goal Update 04-20-24 progress NEW GOALS: increase LE strength to improve mobility and activity level 1* pt perform R LE: SLR and side lying hip abduction 25 reps 2* pt perform L LE: SLR and side lying hip abducti
--- NOTE | 2024-04-20 09:00 | PTOPPROG ---
Assessment and note entered by Petty Lombardo, PT Progress Report Assessment Status Progress Diagnosis trochanteric bursitis L hip,lumbar pain, R shoulder pain,L shoulder pain ICD-10 Condition Codes (PT) Pain in low back M54.50 Onset one year Subjective Information got an injection in my L hip and it is a little better; have lost more weight, at 122# now; saw dr- not sure why I keep losing weight; last CT scan of abdomen--cancer is clear, have inflamed gall bladder; have cramps in ankles and calves- muscles tighten up; in therapy--want to get more strength in legs; have off the chart stress level-----caring for his dad with dementia, brother is going to fdc; people do not realize how bad I hurt and the pain never goes away; PAIN: range in the past week: 4-8/10; pain in back, joints, legs increase pain: doing house chores, helping dad bathe & dress trying to walk for exercise-- tolerance for activity about 20 minutes, then SOB and have to do inhaler Assessment PT Clinical Summary Abraham has received 3 PT sessions. He did aquatic exercises and was not able to tolerate due to the chemicals caused skin irritation and had breathing issues. Reports he is no longer using the cane to walk and L hip is better since he received a hip injection. Continues to work with pain management. Currently has a sinus infection and going to ENT in a few weeks. Compared to the initial evaluation: pain rating from 3-8/10 to 4-8/10; Oswestry self assessment from 42 to 58% limitation in activity level; 5 reps sit/stand time from 29 to 22 seconds; 2 minute walking test distance of 340' with 8/10 pain to 450' with 6/10 pain; decreased strength of L hip due to pain with mat exercises. Abraham agreed to land exercises to increase his strength; he voiced frustration about his situation and weakness. Continue PT to increase strength and decrease pain
--- NOTE | 2024-05-02 08:59 | PCPTNOTE ---
This treatment is being continued on visit number [id number] Please see documentation on both accounts to view progress. Completed interventions, outcomes, and problems have been marked as Inactive to facilitate the copying of the Care plan routine for recurring accounts.
== END 2024-05-02 08:03 | disposition home or self-care (01) ==
LOC: ANHPT 10:30
PROVIDERS: PCP Physician Assistant; Visit Provider Anesthesiology Pain Medicine
DX: M70.62 Trochanteric bursitis, left hip (principal); M25.559 Pain in unspecified hip; M47.817 Spondylosis without myelopathy or radiculopathy, lumbosacral region; M25.511 Pain in right shoulder; M25.512 Pain in left shoulder; M48.062 Spinal stenosis, lumbar region with neurogenic claudication
CPT/HCPCS: 97110; 97113; 97161; 97530

== ENCOUNTER 2024-05-10 09:31 | Outpatient (CLI) | payer OTHER, SELFPAY ==
--- NOTE | ~2024-05-10 | CT_ITS ---
CT sinus wo con Ordering provider: Oh Mcdermott M.D. History: . J32.4 - Chronic pansinusitis . Comparison: The Technique: Thin slice Scans CT of the paranasal sinuses was performed with coronal and sagittal refor matted images. No IV contrast. . Automated exposure control and iterative reconstruction technique w ere employed. The dose-length product was 302.19 mGy-cm. Findings: NASAL SEPTUM: Mild right nasal septal deviation is seen inferiorly and posteriorly. OSTEOMEATAL UNITS: Bilaterally patent. NASAL TURBINATES AND NASOPHARYNX: Normal. PARANASAL SINUSES: Well aerated. VISUALIZED MASTOIDS: Normal as visualized. BONES: Normal. SUPERFICIAL SOFT TISSUES/VISUALIZED BRAIN PARENCHYMA: Normal. IMPRESSION: Very mild right nasal septal deviation. Otherwise, unremarkable. Reviewed, dictated and finalized at location [facility].
== END 2024-05-10 09:32 | disposition home or self-care (01) ==
PROVIDERS: PCP Family Medicine; Visit Provider Otolaryngology
DX: J34.2 Deviated nasal septum (principal); J32.4 Chronic pansinusitis; J32.9 Chronic sinusitis, unspecified; G47.33 Obstructive sleep apnea (adult) (pediatric)
CPT/HCPCS: 70486

== ENCOUNTER 2024-05-25 08:00 | Outpatient (RCR) | payer OTHER, SELFPAY ==
--- NOTE | 2024-05-02 09:00 | PCPTNOTE ---
This treatment is being continued from visit number [id number] Please see documentation on both accounts to view progress. Completed interventions, outcomes, and problems have been marked as Inactive to facilitate the copying of the Care plan routine for recurring accounts.
--- NOTE | 2024-05-15 14:40 | PCPTNOTE ---
pt showed up for today's reevaluation appt 15 minutes early. At 5 minutes after his appt time, as therapist was walking to get him, he told commercial front load operator staff that he had to leave, could not stay any longer. He rescheduled for next week.
--- NOTE | 2024-05-25 08:31 | PTOPDC ---
Assessment and note entered by Petty Lombardo, PT Discharge Report Assessment Status Discharge Diagnosis trochanteric bursitis L hip,lumbar pain, R shoulder pain,L shoulder pain ICD-10 Condition Codes (PT) Pain in low back M54.50 Onset one year Subjective Information the therapy causes him more pain, he has tried to do the exercises at home, but hurts more after doing them; needs to get ahold of the dr, having more pain and need another shot in hip; cannot believe they cannot do something more for him and why does he have to have so much pain; is not going to do any of the lying down things today- they hurt him too much; want to stop coming for therapy--not helping him; Reported Pain Level Pain Score Self Report Additional Pain Score Comments burning in L hip with every step take, all joints hurt; arthritis in back; pain range in the past week 6-10/10; increase pain with activity decrease pain: sit, rest, pain meds discussed use of heat, he report do not have time for heat, too busy taking care of his dad and the house Assessment PT Clinical Summary Abraham has received a total of 9 PT sessions, from February 09 to today. He called/canceled 4 appointments. Compared to the last progress report: he has declined in all areas: pain has increased from 4- 8/10 to 6-10/10; Oswestry self rating functional score from 58 to 60% limitation in activity level; 2 minute walking test distance from 450' without assistive device to 300' with cane; 5 reps sit/ stand time from 22 to 30 seconds. At today's assessment, he refused to do any strength or flexibility testing due to them causing increase in pain. He has been educated on HEP and body mechanics. The goals were not met, except education to pt. Discharge PT due to decline in status, with more pain and less activity tolerance. He is to contact his dr for follow up. Plan of Care PT Services Indicated No
== END 2024-05-25 13:01 | disposition home or self-care (01) ==
LOC: ANHPT 08:00
PROVIDERS: Visit Provider Anesthesiology Pain Medicine
DX: M70.62 Trochanteric bursitis, left hip (principal); M25.559 Pain in unspecified hip; M47.817 Spondylosis without myelopathy or radiculopathy, lumbosacral region; M25.511 Pain in right shoulder; M25.512 Pain in left shoulder; M48.062 Spinal stenosis, lumbar region with neurogenic claudication
CPT/HCPCS: 97110; 97530

== ENCOUNTER 2024-10-08 10:01 | Outpatient (CLI) | payer OTHER, SELFPAY ==
--- NOTE | ~2024-10-08 | CT_ITS ---
CT Scan of the Chest without Contrast: Clinical Indication: Lung cancer screening, nicotine dependence Technique: Contiguous sections were acquired throughout the chest without intravenous contrast. Dose reduction technique was used on this scan by utilizing automated exposure control and iterative recon struction technique. The dose-length product (DLP) was 73.26 mGy-cm. COMPARISON: 10/13/2023 Findings: There is no evidence of any significant mediastinal, hilar or axillary lymphadenopathy. The mediastin al soft tissues appear normal. There is no evidence of pleural or pericardial effusion. There is advanced emphysema. There are patchy areas of consolidation/nodularity throughout both lungs , worse in the upper lobes, new from prior exam. Several areas demonstrate possible focal central cav itation. Images through the upper abdomen reveal no abnormalities. Impression: Lung RADS 3: Probably benign. Patchy areas of consolidation and nodularity in both lungs are new from prior exam, with upper lobe predominance and possible areas of central cavitation. Findings suggest infectious process/multifocal pneumonia. Short-term follow-up exam in 1-3 months after any appropriat e interval therapy recommended to assess for interval improvement/resolution. Evidence of edema. Reviewed, dictated and finalized at location . Impression: Lung RADS 3: Probably benign. Patchy areas of consolidation and nodularity in b oth lungs are new from prior exam, with upper lobe predominance and possible ar eas of central cavitation. Findings suggest infectious process/multifocal pneum onia. Short-term follow-up exam in 1-3 months after any appropriate interval th erapy recommended to assess for interval improvement/resolution. Evidence of edema.
--- OUTSIDE RECORDS SUMMARY | 2024-10-08 11:09 | XMS_ITS | CONTINUITY OF CARE DOCUMENT ---
Author Name mickie corado Address Unknown Organization [facility] Address [address] [place] [address] Phone [phone] Care Team Providers Care Keno Attendant Name Role Phone David Bridges MD Unavailable ZI MAO MD Unavailable ZI MAO MD Unavailable PROBLEMS Condition Status Date Provider Notes Family History of CVA or Stroke: active ? Clemente Bridges MD Chest pain cath 06/23 normal s cors with no focal obstruction , nl lv function active David Bridges MD Tobacco abuse active David Bridges MD Hypercholesterolemia active Davdi Bridges MD Shortness of breath active David Bridges MD ENCOUNTERS Date Type Provider Location Encounter Diag nosnancy 3 - 3 In-person encounter Office Visit David Bridges MD [place] [facility] Chest pain cath 06/23 normals cors with no focal obstruction , nl lv function 8 - 8 In-person encounter Office Visit David Bridges MD [place] [facility] Family History of CVA or Stroke:Chest pain cath 06/23 normals cors with no focal obstruction , nl lv functionTobacco abuseHypercholesterolemiaShortness of breath VITAL SIGNS Date Observation Value Provider Body Mass Index (Ratio) 24.96 kg/m2 Eduardo Gamez weight E&M 179 [lb_av] José Gamez oxygen saturation, oximetry 98 % José Gamez blood pressure, diastolic 87 mm[Hg] An eatconrado Gamez blood pressure, systolic 128 mm[Hg] Kat Gamez Body Mass Index (Ratio) 24.40 kg/m2 Eduardo Gamez blood pressure, diastolic 82 mm[Hg] An tanisha Gamez blood pressure, systolic 126 mm[Hg] Kat Gamez pulse rate 82 /min José Gamez oxygen saturation, oximetry 98 % José Gamez respiratory rate E&M 18 /min Bo Gamez weight E&M 175 [lb_av] José Gamez height E&M 71 [in_i] José Gamez ALLERGIES No Known Drug Allergies HISTORY OF MEDICATION USE Medication Status Instructions Dates Provider Indications Com ments VENTOLIN HFA 108 (90 Base) MCG/ACT INHALATION AEROSOL SOLUTION active take as directed José Gamez TUDORZA PRESSAIR 400 MCG/ACT INHALATION AEROSOL POWDER BREATH ACTIVATED active take as directed José Gamez ASPIRIN 325 MG ORAL TABLET active ONE TAB. DAILY David Bridges MD SOCIAL HISTORY Date Observation Value Provider social history reviewed E&M revi ewed - no changes required José Gamez smoking status Current every day smoker Trina Gamez social history reviewed E&M revi ewed - no changes required David Bridges MD smoking, date started 1978 Gail Gamez smoking history, total pack/day 3/4 pk José Gamez cigarette use yes José Gamez smoking status Current every day smoker Trina Gamez FAMILY HISTORY Family Member Condition Father Family History Unkno wn Mother Family History of CV A or Stroke: INSURANCE PROVIDERS Payer name Policy type / Coverage type [place] red alliance party ID EMIL[place]NA MEDICAID (2) Medicaid [id number] TREATMENT PLAN Date Name Performer new patient visit: H is updated medication list for this problem includes: Aspirin 325 Mg Tabs (Aspirin) ..... One tab. daily David Bridges MD Date Name DLCO Order - [id number] FRC Order - [id number] FVC Order - [id number] HISTORY OF PROCEDURES Procedure Date Procedure Name Provider Procedure Notes S tatus BLOOD COUNT HEMOGLOBIN David Bridges MD completed EKG David Bridges MD completed
--- OUTSIDE RECORDS SUMMARY | 2024-10-08 11:09 | XMS_ITS | Clinical Summary ---
Author Organization [facility] Address [address] [place] [address] Care Team Providers Care Laboratory Tester Name Role Phone Unavailable Primary Care Provider Unavailabl e Social History Tobacco Use Types Packs/Day Years Used Date Smoking Tobacco: Never Assessed Sex and Gender Information Value Date Recorded Sex Assigned at Not on file Legal Sex Male 5:11 PM CDT Gender Identity Not on file Sexual Orientation Not on file Plan of Treatment Health Maintenance Due Date Last Done Comments Colorectal Cancer Screening Colonoscopy (10 Years) 1968 Annual Physical 1971 Hepatitis C 1986 DTaP, Tdap and Td Vaccines ( 1 - Tdap) 1987 Hepatitis B Vaccines (1 of 3 - 19+ 3-dose series) 1987 Zoster Vaccines (1 of 2) 2018 COVID-19 Vaccine (2023-2 5 season) 2024 Influenza Adult (#1) 2024 Meningococcal B Vaccine Aged Out No l onger eligible based on patient's age to complete this topic Meningococcal Vaccine Aged Out No mingo debra eligible based on patient's age to complete this topic Pneumococcal Vaccine: Pediat rics (0 to 5 Years) and At-Risk Patients (6 to 64 Years) Aged Out No longer eligible b ased on patient's age to complete this topic RSV Immunizations Under 20 Months Aged Out No longer eligible based on patient's age to complete this topic
== END 2024-10-08 10:02 | disposition home or self-care (01) ==
PROVIDERS: PCP Internal Medicine; Visit Provider Nurse Practitioner Family
DX: Z12.2 Encounter for screening for malignant neoplasm of respiratory organs (principal); Z87.891 Personal history of nicotine dependence; J18.1 Lobar pneumonia, unspecified organism; J81.1 Chronic pulmonary edema
CPT/HCPCS: 71271

== ENCOUNTER 2024-10-23 08:09 | Outpatient (CLI) | payer OTHER, SELFPAY ==
--- OUTSIDE RECORDS SUMMARY | 2024-10-23 08:16 | XMS_ITS | CONTINUITY OF CARE DOCUMENT ---
Author Name mickie corado Address Unknown Organization [facility] Address [address] [address] [place] [address] Phone [phone] Care Team Providers Care Manager Compliance Name Role Phone David Bridges MD Unavailable ZI MAO MD Unavailable ZI MAO MD Unavailable PROBLEMS Condition Status Date Provider Notes Family History of CVA or Stroke: active ? Clemente Bridges MD Chest pain cath 06/23 normal s cors with no focal obstruction , nl lv function active David Bridges MD Tobacco abuse active David Bridges MD Hypercholesterolemia active David Bridges MD Shortness of breath active David Bridges MD ENCOUNTERS Date Type Provider Location Encounter Diag nosnancy 3 - 3 In-person encounter Office Visit David Bridges MD [place] [facility] Chest pain cath 06/23 normals cors with no focal obstruction , nl lv function 8 - 8 In-person encounter Office Visit David Bridges MD [place] [facility] Family History of CVA or Stroke:Chest [...] Payer name Policy type / Coverage type [place] red libertarian ID EMILIANA MEDICAID (2) Medicaid [id number] TREATMENT PLAN Date Name Performer new patient visit: H is updated medication list for this problem includes: Aspirin 325 Mg Tabs (Aspirin) ..... One tab. daily David Bridges MD Date Name DLCO Order - [id number] FRC Order - [id number] FVC Order - [id number] HISTORY OF PROCEDURES Procedure Date Procedure Name Provider Procedure Notes S tatus BLOOD COUNT HEMOGLOBIN David Bridges MD completed EKG David Bridges MD completed
--- OUTSIDE RECORDS SUMMARY | 2024-10-23 08:16 | XMS_ITS | Clinical Summary ---
Author Organization [facility] Address [address] [place] [address] Care Team Providers Care Special Education Preschool Teacher Name Role Phone Unavailable Primary Care Provider [...] 2018 COVID-19 Vaccine (2023-2 5 season) 2024 Meningococcal B Vaccine Aged Out No l onger eligible based on patient's age to complete this topic Meningococcal Vaccine Aged Out No mingo debra eligible based on patient's age to complete this topic Pneumococcal Vaccine: Pediat rics (0 to 5 Years) and At-Risk Patients (6 to 49 Years) Aged Out No longer eligible b ased on patient's age to complete this topic RSV Immunizations Under 20 Months Aged Out No longer eligible based on patient's age to complete this topic
[2024-10-23 08:34] LABS: Basophils Absolute Auto 0.1 K/mm3 (0.0-0.1); Basophils Percent Auto 1.2 % (0.2-1.2); Eosinophils Absolute Auto 0.4 K/mm3 (0-0.3); Eosinophils Percent Auto 4.9 % (0-4.4); Hematocrit 45.8 % (42.0-52.0); Hemoglobin 14.6 g/dL (14.0-18.0); Immature Granulocyte Absolute 0.02 K/mm3 (0.00-0.031); Immature Granulocyte Percent A 0.2 % (0-0.5); Lymphocytes Absolute Auto 1.83 K/mm3 (0.9-3.2); Lymphocytes Percent Auto 21.3 % (18.3-44.2); Mean Corpuscular HGB Conc 31.9 g/dl (32-36); Mean Corpuscular Hemoglobin 30.5 pg (26-34); Mean Corpuscular Volume 95.6 fl (80-100); Mean Platelet Volume 8.3 fl (7.4-10.4); Monocytes Absolute Auto 0.7 K/mm3 (0.1-0.6); Monocytes Percent Auto 8.1 % (2.6-8.5); Neutrophils Absolute Auto 5.5 K/mm3 (1.3-6.7); Neutrophils Percent Auto 64.3 % (45.5-73.1); Platelet Count Result 369 k/mm3 (150-375); Red Blood Count 4.79 M/mm3 (4.6-6.20); Red Cell Distribution Width 12.7 % (11.5-14.5); White Blood Count 8.6 K/mm3 (4.5-10.0)
[2024-10-23 08:45] LABS: Alanine Aminotransferase 21 U/L (6-50); Albumin Level 4.5 g/dL (3.5-5.1); Alkaline Phosphatase 77 U/L (38-126); Anion Gap 6 mmol/L (4-12); Aspartate Amino Transferase 23 U/L (17-59); Bilirubin,Total 0.5 mg/dL (0.2-1.3); Blood Urea Nitrogen 17 mg/dL (9-20); Calcium 9.2 mg/dL (8.4-10.2); Carbon Dioxide 30 mmol/L (22-30); Chloride 105 mmol/L (98-107); Cholesterol 149 mg/dL (0-200); Estimated Glomerular Filt Rate > 60; Glucose 118 mg/dL (65-110); HDL Direct 53 mg/dL; Potassium 4.4 mmol/L (3.4-5.0); Sodium 141 mmol/L (137-145); Triglycerides 56 mg/dL (<150)
[2024-10-23 08:56] LABS: LDL Cholesterol Direct 76 mg/dL
[2024-10-23 09:17] LABS: Prostate Specific Antigen 0.8 ng/mL (< OR = 4.0)
== END 2024-10-23 08:10 | disposition home or self-care (01) ==
LOC: ANHLAB 08:11
PROVIDERS: PCP Internal Medicine; Visit Provider Internal Medicine
DX: Z00.00 Encounter for general adult medical examination without abnormal findings (principal); Z12.5 Encounter for screening for malignant neoplasm of prostate; E78.5 Hyperlipidemia, unspecified; R63.4 Abnormal weight loss
CPT/HCPCS: 36415; 80053; 80061; 84153; 85025; G0103

== ENCOUNTER 2024-11-19 07:55 | Outpatient (CLI) | payer OTHER, SELFPAY ==
--- NOTE | ~2024-11-19 | CT_ITS ---
CT Scan of the Chest without Contrast: Clinical Indication: Pneumonia Technique: Contiguous sections were acquired throughout the chest without intravenous contrast. Dose reduction technique was used on this scan by utilizing automated exposure control and iterative recon struction technique. The dose-length product (DLP) was 161.81 mGy-cm. COMPARISON: 10/08/2024 Findings: There is no evidence of any significant mediastinal, hilar or axillary lymphadenopathy. The mediastin al soft tissues appear normal. There is no evidence of pleural or pericardial effusion. Irregular consolidation in the right upper lobe is worsened from prior exam. There is additional area of probable worsened irregular consolidation left upper lobe. Possible focal area of cavitation necr osis within the left upper lobe consolidation. There is advanced underlying emphysema. Irregular area of consolidation in the superior segment left lower lobe is similar to prior exam, with interval josefa ling in of the areas of cavitation. 1 cm right lower lobe nodule is present, with filling of the prio r area of focal cavitation (axial image 81). 7 mm left upper lobe nodules mildly increased (axial dony ge 81). Images through the upper abdomen reveal no abnormalities. Impression: Areas of irregular consolidation in the right upper lobe and left upper lobe are mildly worsened in e xtent from prior exam. Additional smaller pulmonary nodules bilaterally are stable to minimally incre ased. The nodules demonstrate interval filling in of focal areas of cavitation. These lesions remain indeterminate, with diagnostic insufficiency likely infectious/inflammatory process versus possibly n eoplasm. Continued follow-up advised at a minimum. Consider tissue sampling as indicated. Underlying advanced emphysema. Reviewed, dictated and finalized at location . Impression: Areas of irregular consolidation in the right upper lobe and left upper lobe ar e mildly worsened in extent from prior exam. Additional smaller pulmonary nodul es bilaterally are stable to minimally increased. The nodules demonstrate inter becky filling in of focal areas of cavitation. These lesions remain indeterminate , with diagnostic insufficiency likely infectious/inflammatory process versus p ossibly neoplasm. Continued follow-up advised at a minimum. Consider tissue umu pling as indicated. Underlying advanced emphysema.
--- OUTSIDE RECORDS SUMMARY | 2024-11-19 08:00 | XMS_ITS | Clinical Summary ---
Author Organization [facility] Address [address] [place] [address] Care Team Providers Care Master Technician Name Role Phone Cole Lindsay DO Primary Care Provider [phone] Active Problems Problem Noted Date Diagnosed Date Chronic prostatitis 05/20/2011 Trichomoniasis, unspecified 05/20/2011 Surgical History Surgery Date Site/Laterality Comments [place] UNLISTED PROCEDURE ABDOME N PERITONEUM & OMENTUM Hernia Repair - (Added by TW Conv) [place] PROSTATE NEEDLE BIOPSY AN Y APPROACH Needle Biopsy Of Prostate - Benign (Added by TW Conv) Family History Medical History Relation Name Comments Diabetes Other Diabetes Mellit - (Added by TW Conv) Heart disease Other Heart Disease - (Added by TW Conv) Stroke Other Stroke Syndrome - (Added by TW Conv) Relation Name Status Comments Other Social History Tobacco Use Types Packs/Day Years Used Date Smoking Tobacco: Never Assessed Sex and Gender Information Value Date Recorded Sex Assigned at Not on file 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 Gender Identity Not on file Sexual Orientation Not on file Obstetrics History Plan of Treatment Health Maintenance Due Date Last Done Comments Colon Cancer Screening-Colonoscopy 1968 Depression Screening 1968 Hepatitis C Screening 1968 Prostate Cancer Screening-PSA 1968 DTaP/Tdap/Td Vaccine (1 - Tdap) 1979 Hepatitis B Screening 1986 Regular Well Visit/Exam 18-64 1986 Zoster Vaccine (1 of 2) 2018 Influenza Vaccine (Season Ended) 2025 Pneumococcal vaccine <65 Aged Out No longer eligible based on patient's age to complete this topic Procedures Procedure Name Priority Date/Time Associated Diagnosis Comments PULMONARY FUNCTION TEST (PFT) Routine 11/15/2024 11:54 AM CDT Encounter for disability determination from Last 3 Months Insurance Member Subscriber Plan / Payer (Ef fective 2024-Present) Name:Abraham Funes Relation to Subscriber:Self Name:Marin Abraham Inna Payer ID:Not on file Group ID:Not on file Type:OTHER Address: [address] Care Teams Master Technician Relationship Specialty Start Date End Date Cole Lindsay DO [address] [address] PCP - General Internal Medicine 11/02/24
--- OUTSIDE RECORDS SUMMARY | 2024-11-19 08:00 | XMS_ITS | Referral Summary ---
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 Gender Identity Not on file Sexual Orientation Not on file Plan of Treatment Not on file Procedures Procedure Name Priority Date/Time Associated Diagnosis Comments PULMONARY FUNCTION TEST (PFT) Routine 11/15/2024 11:54 AM CDT Encounter for disability determination from Last 3 Months Insurance BUREAU OF DISABILITY Member Subscriber Plan / Payer (Ef fective 2024-Present) Name:Abraham Funes Relation to Subscriber:Self Name:Abraham Funes Payer ID:Not on file Group ID:Not on file Type:OTHER Address: [address] Care Teams Tractor Crane Engineer Relationship Specialty Start Date End Date Cole Lindsay DO [address] [facility] [address] [place] [address] PCP - General Internal Medicine 11/02/24
--- OUTSIDE RECORDS SUMMARY | 2024-11-19 08:00 | XMS_ITS | CONTINUITY OF CARE DOCUMENT ---
Author Name mickie corado Address Unknown Organization [facility] Address [address] [address] [place] [address] Phone [phone] Care Team Providers Care Software Maintenance Engineer Name Role Phone David Bridges MD Unavailable [...] In-person encounter Office Visit David Bridges MD [place] [facility] Chest pain cath 06/23 normals cors with no focal obstruction , nl lv function 8 - 8 In-person encounter Office Visit David Bridges MD [place] [facility] Family History of CVA or Stroke:Chest [...] Payer name Policy type / Coverage type [place] red alliance party ID EMIL[place]NA MEDICAID (2) Medicaid [id number] TREATMENT PLAN Date Name Performer new patient visit: H is updated medication list for this problem includes: Aspirin 325 Mg Tabs (Aspirin) ..... One tab. daily David Bridges MD Date Name DLCO Order - [id number] FRC Order - [id number] FVC Order - [id number] HISTORY OF PROCEDURES Procedure Date Procedure Name Provider Procedure Notes S tatus BLOOD COUNT HEMOGLOBIN David Bridges MD completed EKG David Bridges MD completed
--- OUTSIDE RECORDS SUMMARY | 2024-11-19 08:00 | XMS_ITS | Clinical Summary ---
Author Organization [facility] Address [address] [place] [address] Care Team Providers Care Technical Communication Teacher Name Role Phone Unavailable Primary Care [...] of 3 - 19+ 3-dose series) 1987 Pneumococcal Vaccine: 50+ Ye ars (1 of 1 - PCV) 2018 Zoster Vaccines (1 of 2) 2018 COVID-19 [...]
== END 2024-11-19 07:56 | disposition home or self-care (01) ==
PROVIDERS: PCP Internal Medicine; Visit Provider Nurse Practitioner Family
DX: R91.8 Other nonspecific abnormal finding of lung field (principal); J43.9 Emphysema, unspecified; J18.9 Pneumonia, unspecified organism
CPT/HCPCS: 71250

== ENCOUNTER 2024-11-27 07:51 | Outpatient (CLI) | payer OTHER, SELFPAY ==
--- OUTSIDE RECORDS SUMMARY | 2024-11-27 07:56 | XMS_ITS | Clinical Summary ---
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
--- OUTSIDE RECORDS SUMMARY | 2024-11-27 07:56 | XMS_ITS | Referral Summary ---
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 Gender Identity Not on file Sexual Orientation Not on file Plan of Treatment Not on file Procedures Procedure Name Priority Date/Time Associated Diagnosis Comments PULMONARY FUNCTION TEST (PFT) Routine 11/15/2024 11:54 AM CDT Encounter for disability determination from Last 3 Months Insurance [place] [employer]URE[employer] DISABILITY Member Subscriber Plan / Payer (Ef fective 2024-Present) Name:Abraham Funes Relation to Subscriber:Self Name:Abraham Funes Payer ID:Not on file Group ID:Not on file Type:OTHER Address: [address] Care Teams Director Of Enrollment Relationship Specialty Start Date End Date Cole Lindsay DO [address] [facility] [address] [place], [place] [id number] PCP - General Internal Medicine 11/02/24
--- OUTSIDE RECORDS SUMMARY | 2024-11-27 07:56 | XMS_ITS | Clinical Summary ---
Author Organization [facility] Address [address] [place] [address] Care Team Providers Care Client Architect Name Role Phone Unavailable Primary Care Provider [...]
--- OUTSIDE RECORDS SUMMARY | 2024-11-27 07:56 | XMS_ITS | CONTINUITY OF CARE DOCUMENT ---
Author Name mickie corado Address Unknown Organization [facility] Address [address] [address] [facility] [address] [place] [address] Phone [phone] Care Team Providers Care Loan Closer Name Role Phone David Bridges MD Unavailable [phone] ZI MAO MD Unavailable ZI MAO MD Unavailable [phone] PROBLEMS Condition Status Date Provider Notes Family [...] In-person encounter Office Visit David Bridges MD [place] [facility] Chest pain cath 06/23 normals cors with no focal obstruction , nl lv function 8 - 8 In-person encounter Office Visit David Bridges MD [place] [facility] Family History of CVA or Stroke:Chest [...] Payer name Policy type / Coverage type [place] red [employer] party ID [place]IL[place] MEDICAID (2) Medicaid [id number] TREATMENT PLAN Date Name Performer new patient visit: H is updated medication list for this problem includes: Aspirin 325 Mg Tabs (Aspirin) ..... One tab. daily David Bridges MD Date Name DLCO Order - [id number] FRC Order - [id number] FVC Order - [id number] HISTORY OF PROCEDURES Procedure Date Procedure Name Provider Procedure Notes S tatus BLOOD COUNT HEMOGLOBIN David Bridges MD completed EKG David Bridges MD completed
--- NOTE | 2024-11-27 08:04 | ECG_ITS ---
Test Date: 2024-11-27 08:18:06 Measurements Intervals [place] Rate: 68 P: -11 ME: 103 QRS: 63 QRSD: 106 T: 46 QT: 383 QTc: 408 Interpretive Statements SINUS RHYTHM WITH SHORT ME INTERVAL No previous ECG available for comparison Electronically Signed On 11-27-2024 13:35:47 CDT by Lacey Lou M.D.
== END 2024-11-27 07:52 | disposition home or self-care (01) ==
LOC: ANHLAB 07:53
PROVIDERS: PCP Internal Medicine; Visit Provider Anesthesiology
DX: Z01.818 Encounter for other preprocedural examination (principal); K40.91 Unilateral inguinal hernia, without obstruction or gangrene, recurrent; R94.31 Abnormal electrocardiogram [ECG] [EKG]
CPT/HCPCS: 36415; 86850; 86900; 86901; 93005

== ENCOUNTER 2024-12-06 01:29 | Day surgery (SDC) | payer OTHER, SELFPAY ==
[2024-11-26 09:25] VITALS: BMI 20.5
--- NOTE | 2024-11-26 09:41 | PC.NURSE ---
Addendum entered by Mey Salmon RN 11/26/24 10:02: PATIENT INSTRUCTED TO BRING RESCUE INHALER DAY OF SURGERY Original Note: Report to the Outpatient Waiting Room, entrance under the green pavilion located off [facility], at time _1000_ on date _11/26/24_. Planned Procedure Time: 1200__.? Time changes happen often and if your time is changed the preop area will call you the afternoon before. - You and your visitor will be asked to self-screen and do not enter if you have any COVID symptoms. Please call surgeon if you need to reschedule. - A mask is optional within the hospital at this time. Patients may have clear liquids (water, carbonated beverages, clear teas, apple juice) until 3 hours prior to surgery with a maximum of 20 ounces. - No food from midnight until time of surgery and no smoking, or chewing tobacco (or any form of nicotine). No chewing gum, candy or mints. - Infants may have breast milk until 4 hours before surgery, infant formula 6 hours prior to surgery. - Children will be allowed to drink immediately following surgery.? If applicable, please bring a bottle or sippy cup to assist with drinking. Juice, water, soda, and popsicles are readily available.? For infants on formula, please bring formula the day of surgery.? Pacifiers are allowed. Take only the following medications with a SIP of water on the morning of surgery: TRELEGY DO NOT STOP ANY OF YOUR OTHER PRESCRIPTION MEDICATIONS PRIOR TO SURGERY EXCEPT THE FOLLOWING Hold all vitamins and supplements for 3 days per anesthesiologist. Medications to discontinue per physician ASK MD ABOUT CELEBREX Date to take last dose Please no make-up, nail armenian, hairspray, perfume, deodorant, or body powder the day of surgery.? No jewelry (including any body piercings) or valuables the day of surgery, leave them at home.? Please take a shower or bath the night before, or the morning of, surgery with HIBICLENS antibacterial soap.? Wear comfortable, loose fitting clothing.? Children are encouraged to wear pajamas. - Jewelry must be removed prior to entering the operating room.? Rings and piercings that are not removed may be cut off. - The hospital will not accept responsibility for valuables.? - Please leave all valuables, including medications, at home the day of surgery. If you are going home after surgery, a licensed [place] driver must drive you home.? - NO public transportation without another adult if you receive anesthesia. - We recommend that an adult stay with you for 24 hours following discharge. - We also recommend that you do not drive, make important decision, drink alcoholic beverages, or take any drugs that were not prescribed by your health care provider for at least 24 hours after your discharge time. For Pediatric surgeries, we recommend two adults accompany the child home. Follow any additional instructions given to you from your surgeon. Telephone instructions given to __PATIENT__and asked if any additional questions and then verbalized understanding. Patient advised to call surgeon office or pre surgery nurse liaison [phone] if any additional questions.
[2024-12-06] VITALS (8 sets, daily range): BP systolic 116–144; BP diastolic 72–89; PULSE 63–97; RESP 12–20; TEMP 36.2–36.5; O2SAT 99–100; BMI 20.2
--- OUTSIDE RECORDS SUMMARY | 2024-12-06 01:54 | XMS_ITS | Clinical Summary ---
Author Organization [facility] Address [address] [place] [address] Care Team Providers Care Recooperer Name Role Phone Cole Lindsay DO Primary Care Provider [phone] Active Problems Problem Noted Date Diagnosed Date Chronic prostatitis 05/20/2011 Trichomoniasis, unspecified 05/20/2011 Encounters Date Type Department Care Team Description 12/04/2024 9:38 AM CDT - 12/04/2024 11:59 PM CDT Hospital Encounter [facility] Respiratory [address] [place] [address] Discharge Disposition: Discharge to home or self care from Last 3 Months Surgical History Surgery Date Site/Laterality Comments [place] UNLISTED PROCEDURE ABDOME N PERITONEUM & OMENTUM Hernia Repair - (Added by TW Conv) [place] PROSTATE NEEDLE BIOPSY AN Y APPROACH Needle Biopsy Of Prostate - Benign (Added by TW Conv) Family History Medical History Relation Name Comments Diabetes Other Diabetes [facility] - (Added by TW Conv) Heart disease Other Heart Disease - (Added by TW Conv) Stroke Other Stroke Syndrome - (Added by TW Conv) Relation Name Status Comments Other Social History Tobacco Use Types Packs/Day Years Used Date Smoking Tobacco: Never Assessed Sex and Gender Information Value Date Recorded Sex Assigned at Not on file 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 Gender Identity Not on file Sexual Orientation [...] Diagnosis Comments PULMONARY FUNCTION TEST (PFT) Routine 12/04/2024 11:12 AM CDT Encounter for disability determination from Last 3 Months Insurance [place] [employer] Member Subscriber Plan / Payer (Ef fective 2024-Present) Name:Abraham Funes Relation to Subscriber:Self Name:Abraham Funes Payer ID:Not on file Group ID:Not on file Type:OTHER Address: [address] Care Teams Recooperer Relationship Specialty Start Date End Date Cole Lindsay DO [address] [address] PCP - General Internal Medicine 11/02/24
--- OUTSIDE RECORDS SUMMARY | 2024-12-06 01:54 | XMS_ITS | Encounter Summary ---
Author Organization [facility] Healthcare Address [address] [place] [address] Care Team Providers Care Power Press Tender Name Role Phone Cole Lindsay DO Primary Care Provider [phone] Reason for Visit * Procedure (Routine) - Pending Review Specialty Diagnoses / Procedures Referred By Johanne peralta Referred To Contact Diagnoses Encounter for disability determination Procedures Pulmonary Function Test -[facility]; Spirometry with Bronchodilator John Corrales MD [address] [place] [address] Phone: tel: fax: Referral ID Status Reason Start Date Expiration Date V isits Requested Visits Authorized [id number] Pending Review 10/30/2024 11/29/2025 1 1 Encounter Details Date Type Department Care Team (Latest Contact Info) Description 12/04/2024 9:38 AM CDT - 12/04/2024 11:59 PM CDT Hospital Encounter [facility] Respiratory [address] [place] [address] Discharge Disposition: Discharge to home or self care Social History Tobacco Use Types Packs/Day Years Used Date Smoking Tobacco: Never Assessed Sex and Gender Information Value Date Recorded Sex Assigned at Not on file 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 Gender Identity Not on file Sexual Orientation Not on file documented as of this encounter Discharge Disposition Disposition Code Departure Means Destination Discharge to home or self care documented in this encounter Plan of Treatment Pending Results Name Type Priority Associated Diagnoses Date /Time Pulmonary Function Test - PFT Routine Encounter for disability determination 12/04/2024 11:12 AM CDT documented as of this encounter Procedures Procedure Name Priority Date/Time Associated Diagnosis Comments PULMONARY FUNCTION TEST (PFT) Routine 12/04/2024 11:12 AM CDT Encounter for disability determination documented in this encounter Visit Diagnoses Not on filedocumented in this encounter Care Teams Power Press Tender Relationship Specialty Start Date End Date Cole Lindsay DO [address] [facility] [address] [address] PCP - General Internal Medicine 11/02/24 documented as of this encounter
--- OUTSIDE RECORDS SUMMARY | 2024-12-06 01:54 | XMS_ITS | CONTINUITY OF CARE DOCUMENT ---
Author Name mickie corado Address Unknown Organization [facility] Address [address] [place] [address] Phone [phone] Care Team Providers Care Science Faculty Member Name Role Phone David Bridges MD Unavailable ZI MAO MD Unavailable [phone] ZI MAO MD Unavailable [phone] PROBLEMS Condition Status Date Provider Notes Family [...] In-person encounter Office Visit David Bridges MD [facility] Chest pain cath 06/23 normals cors with no focal obstruction , nl lv function 8 - 8 In-person encounter Office Visit David Bridges MD [facility] Family History of CVA or Stroke:Chest [...] Payer name Policy type / Coverage type [place] red green party ID [place] [employer] (2) Medicaid [id number] TREATMENT PLAN Date Name Performer new patient visit: H is updated medication list for this problem includes: Aspirin 325 Mg Tabs (Aspirin) ..... One tab. daily David Bridges MD Date Name DLCO Order - [id number] FRC Order - [id number] FVC Order - [id number] HISTORY OF PROCEDURES Procedure Date Procedure Name Provider Procedure Notes S tatus BLOOD COUNT HEMOGLOBIN David Bridges MD completed EKG David Bridges MD completed
--- OUTSIDE RECORDS SUMMARY | 2024-12-06 01:54 | XMS_ITS | Referral Summary ---
Author Organization [facility] Address [address] [place] [address] Care Team Providers Care English Drawer Name Role Phone Cole Lindsay DO Primary Care Provider [phone] Encounters Date Type Department Care Team Description 12/04/2024 9:38 AM CDT - 12/04/2024 11:59 PM CDT Hospital Encounter [facility] Respiratory [address] [place] [address] Discharge Disposition: Discharge to home or self care from Last 3 Months Active Problems Problem Noted Date Diagnosed Date Chronic prostatitis 05/20/2011 Trichomoniasis, unspecified 05/20/2011 Social History Tobacco Use Types Packs/Day Years Used Date Smoking Tobacco: Never Assessed Sex and Gender Information Value Date Recorded Sex Assigned at Not on file 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 Gender Identity Not on file Sexual Orientation Not on file Plan of Treatment Not on file Procedures Procedure Name Priority Date/Time Associated Diagnosis Comments PULMONARY FUNCTION TEST (PFT) Routine 12/04/2024 11:12 AM CDT Encounter for disability determination from Last 3 Months Insurance [place] [employer] Member Subscriber Plan / Payer (Ef fective 2024-Present) Name:Abraham Funes Relation to Subscriber:Self Name:Abraham Funes Payer ID:Not on file Group ID:Not on file Type:OTHER Address: [place] [id number] [facility] Care Teams English Drawer Relationship Specialty Start Date End Date Cole Lindsay DO [address] [facility] [address] [place] [address] PCP - General Internal Medicine 11/02/24
[2024-12-06] MEDS: ACETAMINOPHEN 500 MG TABLET 1000 MG PO (07:00)
[2024-12-06] MEDS: KETOROLAC 15 MG/ML VIAL (*BKC) IV PUSH (07:00)
--- NOTE | 2024-12-06 07:14 | PM.IMHP ---
H&P: HPI History of Present Illness Date/Time: 12/06/24 07:14 Chief Complaint: recurrent LIH Narrative: Abraham is a 54 y/o male who presents to the office at the request of Dr. Lindsay for evaluation of a left inguinal hernia. Patient states he noticed a bulge in his left groin back in August after lifting his father up following a fall. States he has intermittent left groin pain. Denies any issues with BM's or with urinating. He has a past surgical history of right inguinal hernia repair x1 and left inguinal hernia repair x1. 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 Surgical History Surgical History Hx of colonoscopy History of hernia repair 2 times Family History Family History Sibling Hypertension Father Family history of cardiovascular disease Patient's father is Acute myocardial infarction Heart disease Heart problem Mother Cerebrovascular accident Alcoholism Diabetes mellitus Hypertension Grandparent Alcoholism Diabetes mellitus Grandparent Alcoholism Cancer Heart disease Hypertension Heart problem Social History Social History Smoking packs per day: 1 Smoking cigarettes per day: 20.0 Years smoked: 40 Smoking pack-years: 40.00 Smoking status: Current every day smoker Tobacco type: cigarettes Second hand tobacco smoke exposure: No Alcohol intake: never Alcohol use details: STOPPED 2008 Substance use: current Substance use type: marijuana Other substance usage details: Daily PRN Pain, Edible, Smoke Last use: 11/22/23 Current Housing: Decline to Answer Concerned About Future Housing: Decline to Answer Difficulty Paying Gas/Electric Bills: Decline to Answer Difficulty Paying for Meds: Decline to Answer Currently Unemployed: Decline to Answer Education: Decline to Answer Difficulty w/ Childcare or Family Care: Decline to Answer Living arrangements: with family Additional living arrangements comments: WITH UNCLE Occupation/Education: unemployed Gender identity (if verbalized by the patient): Male Spiritual care concerns: No Meds Home Medications and Allergies Home Medications ?Medication ?Instructions ?Recorded ?Confirmed ?Type albuterol sulfate 90 mcg/actuation See Rx Instructions .Route 08/02/24 11/26/24 Rx aerosol inhaler .COMPLEX #9 grams pantoprazole 20 mg tablet,delayed 20 mg PO QAM #30 tabs 08/06/24 11/26/24 Rx release betamethasone valerate 0.1 % 1 applic topical BID PRN rash #45 09/03/24 11/26/24 Rx topical cream grams roflumilast 500 mcg tablet 500 mcg PO DAILY #30 tabs 10/05/24 11/26/24 Rx (Daliresp) Trelegy Ellipta 100 mcg-62.5 1 inh inhalation Q24H #60 ea 10/11/24 11/26/24 Rx mcg-25 mcg powder for inhalation (vabyzqguhvc-bnivnrxkh-ujumwign) celecoxib 200 mg capsule (Celebrex) 200 mg PO DAILY osteoarthritis 30 10/12/24 11/26/24 Rx days #30 caps buprenorphine 7.5 mcg/hour weekly 1 patch transdermal Q7D 28 days #4 11/20/24 11/26/24 Rx transdermal patch ea trazodone 150 mg tablet 150 mg PO HS 11/26/24 11/26/24 History Allergies Allergy/AdvReac Type Severity Reaction Status Date / Time No Known Allergies Allergy Verified 12/06/24 06:57 Vital Signs Vital Signs - 24 hr 12/06/24 06:58 Temperature 36.5 C Pulse Rate 74 Blood Pressure 116/75 Pulse Oximetry 100 Oxygen Delivery Room Air Exam Const: General: cooperative, comfortable and no acute distress Resp: Auscultation: clear to auscultation bilaterally Cardio: Rate: regular rate Rhythm: regular rhythm GI: Inspection: normal to inspection and visible herniation GI Palp: Yes abdominal tenderness, Yes Soft to palpation, No Tenderness to palpation present (GI) and Yes Hernia present Other: L inguinal hernia moderate reducible Assessment and Plan Assessment and plan (1) Recurrent left inguinal hernia: Code(s): K40.91 - Unilateral inguinal hernia, without obstruction or gangrene, recurrent Status: Acute Assessment and Plan: will setup for robotic repair with mesh
--- NOTE | 2024-12-06 07:15 | WPDHPUPDATE1 ---
History and Physical Update Update Date/Time: 12/06/24 07:15 History and Physical has been reviewed, including an updated exam of the patient. There are NO changes in the patient's condition. Risks, benefits, and alternatives have been discussed and questions answered. Patient agrees to proceed with procedure.
--- NOTE | 2024-12-06 07:21 | P.PNAN_ITS ---
Anes - Initial Pre Proc Eval Procedure: Operation Date: 12/06/24 07:30 Proposed Procedures p Robotic Assisted Laparoscopic Recurrent Left Inguinal Hernia Repair with Mesh - Ai Blum MD Date/Time: 12/06/24 07:21 Surgeon: Ai Blum MD Pre Op Diagnosis: recurrent left inguinal hernia Patient Data Age: 54 Gender: M Height: 1.78 m Weight: 63.8 kg Last Vital Signs Temp 36.5 C 12/06/24 06:58 Pulse 74 12/06/24 06:58 BP 116/75 12/06/24 06:58 Pulse Ox 100 12/06/24 06:58 O2 Del Method Room Air 12/06/24 06:58 Allergies Allergy/AdvReac Type Severity Reaction Status Date / Time No Known Allergies Allergy Verified 12/06/24 06:57 Home Medications ?Medication ?Instructions ?Recorded ?Confirmed ?Type albuterol sulfate 90 mcg/actuation See Rx Instructions .Route 08/02/24 11/26/24 Rx aerosol inhaler .COMPLEX #9 grams pantoprazole 20 mg tablet,delayed 20 mg PO QAM #30 tabs 08/06/24 11/26/24 Rx release betamethasone valerate 0.1 % 1 applic topical BID PRN rash #45 09/03/24 11/26/24 Rx topical cream grams roflumilast 500 mcg tablet 500 mcg PO DAILY #30 tabs 10/05/24 11/26/24 Rx (Daliresp) Trelegy Ellipta 100 mcg-62.5 1 inh inhalation Q24H #60 ea 10/11/24 11/26/24 Rx mcg-25 mcg powder for inhalation (yrbjqwvajxj-izfhqawcc-walpwgcg) celecoxib 200 mg capsule (Celebrex) 200 mg PO DAILY osteoarthritis 30 10/12/24 11/26/24 Rx days #30 caps buprenorphine 7.5 mcg/hour weekly 1 patch transdermal Q7D 28 days #4 11/20/24 11/26/24 Rx transdermal patch ea trazodone 150 mg tablet 150 mg PO HS 11/26/24 11/26/24 History Patient hx anesthesia problems: none Family hx anesthesia problems: none Results Review: All pre-operative results and documents have been reviewed as part of the pre- operative evaluation. 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 Surgical History Surgical History Hx of colonoscopy History of hernia repair 2 times Family History Family History Sibling Hypertension Father Family history of cardiovascular disease Patient's father is Acute myocardial infarction Heart disease Heart problem Mother Cerebrovascular accident Alcoholism Diabetes mellitus Hypertension Grandparent Alcoholism Diabetes mellitus Grandparent Alcoholism Cancer Heart disease Hypertension Heart problem Social History Social History Smoking packs per day: 1 Smoking cigarettes per day: 20.0 Years smoked: 40 Smoking pack-years: 40.00 Smoking status: Current every day smoker Tobacco type: cigarettes Second hand tobacco smoke exposure: No Alcohol intake: never Alcohol use details: STOPPED 2008 Substance use: current Substance use type: marijuana Other substance usage details: Daily PRN Pain, Edible, Smoke Last use: 11/22/23 Current Housing: Decline to Answer Concerned About Future Housing: Decline to Answer Difficulty Paying Gas/Electric Bills: Decline to Answer Difficulty Paying for Meds: Decline to Answer Currently Unemployed: Decline to Answer Education: Decline to Answer Difficulty w/ Childcare or Family Care: Decline to Answer Living arrangements: with family Additional living arrangements comments: WITH UNCLE Occupation/Education: unemployed Gender identity (if verbalized by the patient): Male Spiritual care concerns: No Anes - Eval Final PreProcedure Day of Procedure 12/06/24 07:21 Patient weight: normal Heart: regular rate and rhythm Lungs: decreased breath sounds Airway: Mallampati scale class III Neurological: alert and oriented Last oral intake: >/= 8 hours ASA classification: III Emergent: no Anesthetic plan: proceed Anesthesia type and monitoring: general ETT and standard monitoring Results Review: All pre-operative results and documents have been reviewed as part of the pre- operative evaluation. Informed Consent: The patient's anesthetic plan and its attendant risks and benefits were discussed with the patient/family/POA. Questions were solicited and answers provided to the satisfaction of the patient/family/POA.
[2024-12-06] MEDS: LACTATED RINGERS 1,000 ML 30 ML IV CONT ×2 (07:22→09:19)
[2024-12-06] MEDS: ceFAZolin 2 GM/D5W 50 ML 2 GM/50 ML BAG IVPB (07:24)
[2024-12-06] MEDS: BUPIVACAINE/EPINEPHRINE 0.5% 50 ML VIAL 30 ML INFILTRATE (07:59)
--- NOTE | 2024-12-06 08:43 | P.OP_ITS ---
Procedure Note - Detailed Date of Procedure 12/06/24 Pre-op Diagnosis recurrent left inguinal hernia Post-op Diagnosis Same Procedure Performed Robotic assisted recurrent left inguinal hernia repair with mesh Surgeon Ai Blum MD Anesthesia General and Local Indications 54-year-old male presenting with a recurrent left inguinal hernia. Patient had bilateral open repair in the past. Findings Right side with noted mesh plug and no recurrence, left side with recurrence and no mesh noted Description of Procedure Patient was brought into the operating room and placed in the supine position. After adequate induction of general anesthesia, the patient was prepped and draped in normal sterile fashion. A time-out was then done to verify the patient's identity, as well as the procedure being performed. I began by making a 8 mm incision in the supraumbilical region, a Veress needle was then placed into the peritoneal cavity. CO2 gas was then insufflated and after adequate pneumoperitoneum was achieved, the Veress needle was removed. I then placed an 8 mm trocar through this incision. I then placed the endoscope through this trocar site and under direct visualization placed 2 further 8 mm ports in the right and left mid abdomen. The [employer] Corei robot was then docked to the 3 trocar sites. I then scrubbed out and went to the robotic console. Upon examining the pelvis, it was noted that the patient had a moderate left inguinal hernia. The right side was examined and no hernia defect was noted. There was noted to be a mesh plug from previous repair. I began by making a preperitoneal flap approximately 6 cm superior to the defect. This flap was carried medially past the umbilical ligaments and laterally to the transversalis. It then began dissection of my medial compartment taking this down to the pubic tubercle. I then began the lateral dissection taking this down to the transversalis fascia. Of note, there was some additional scarring from previous repair but no mesh was noted. Once these compartments were achieved, I began dissection around the cord structures. A moderate sized indirect hernia was noted at this point. Using careful dissection, was able to reduce indirect hernia sac off the cord structures. Once this was adequately done, I went ahead and placed a large piece of 3D Max mesh into the abdominal cavity. The mesh was carefully positioned, centering the center of the mesh over the indirect defect. Once this was done, was very satisfied with our repair. Using 3-0 Vicryl sutures, I tacked the mesh medially to Jose's ligament. Two lateral sutures were placed from the mesh to the transversalis fascia. I then closed the peritoneal flap with a running 2.0 V Lock suture. The abdomen was then desufflated, and all ports were removed. All incisions were then closed with the 4.0 monocryl suture. Dermabond was placed on each wound. The patient tolerated the procedure well, was extubated in the operating room postoperatively, and will now be transferred to the recovery room in stable condition. Implants large 3DMax mesh Estimated Blood Loss 10 Drains No Packing No Pathology None sent Complications No immediate complications Condition Stable Disposition PACU [facility] Billing Surgery - Charge Forward: Surgery Billing
[2024-12-06] MEDS: fentaNYL CITRATE INJ (*CRX) 100 MCG/2 ML VIAL 25 MCG IV PUSH ×4 (09:02→09:17)
== END 2024-12-06 10:38 | disposition home or self-care (01) ==
PROVIDERS: PCP Internal Medicine; Visit Provider Surgery
PROC: 8E0Y4CZ Robotic Assisted Procedure of Lower Extremity, Percutaneous Endoscopic Approach (ICD-10-PCS; CPT 49650; principal; 2024-12-06 07:30)
DX: K40.91 Unilateral inguinal hernia, without obstruction or gangrene, recurrent (principal); M81.0 Age-related osteoporosis without current pathological fracture; K21.9 Gastro-esophageal reflux disease without esophagitis; J44.9 Chronic obstructive pulmonary disease, unspecified; K82.9 Disease of gallbladder, unspecified; M19.90 Unspecified osteoarthritis, unspecified site; F12.90 Cannabis use, unspecified, uncomplicated; F17.210 Nicotine dependence, cigarettes, uncomplicated; Z79.51 Long term (current) use of inhaled steroids; Z79.1 Long term (current) use of non-steroidal anti-inflammatories (NSAID); Z98.890 Other specified postprocedural states; Z85.9 Personal history of malignant neoplasm, unspecified; Z86.0100 Personal history of colon polyps, unspecified; Z80.9 Family history of malignant neoplasm, unspecified; Z82.49 Family history of ischemic heart disease and other diseases of the circulatory system
CPT/HCPCS: 49651; S2900; A9270; C1781; J0690; J1100; J1885; J2250; J2270; J2405; J2704; J3010; J7030; J7120

== ENCOUNTER 2025-01-30 13:54 | Outpatient (CLI) | payer OTHER, SELFPAY ==
--- NOTE | ~2025-01-30 | CT_ITS ---
EXAMINATION: CT diagnostic chest wo con DATE: 01/30/2025 14:20 INDICATION: Radiologist requested new chest CT before biopsy TECHNIQUE: Computed tomography (CT) of the chest was performed without intravenous contrast. Addition al 3D reconstructions utilizing coronal maximum intensity projection (MIP) were performed. The dose- length product was 74.26 mGy-cm. COMPARISON: 11/19/2024 FINDINGS: Moderate emphysema. Again seen are masslike regions of consolidation in the left and right upper lobe s which initially. Mixed solid and cavitary on study from 10/08/2024, increasing in size and becoming more solid on the study from 11/19/2024. Currently these have become more solid but has slightly decre ased in size since the study from 11/19/2024. For reference the right upper lobe nodule has decreased from 4.0 x 2.5 cm to currently measuring 2.9 x 2.0 cm in the left upper lobe mass is decreased from 3 .8 x 2.2 cm to currently measuring 2.9 x 1.6 cm. There is also been progressive volume loss associate d with the masses with progressive decrease in distance between identical reference points in the camilo g surrounding the nodules when compared between the 3 studies. Findings are most consistent with evol ving sequela of prior infection. There is a second region of consolidation in the posterior segment of the right upper lobe which appe ars more tubular. The most central portion of the consolidation at the time of the prior study measur ed approximately 1.3 x 1.0 cm in diameter currently measuring 1.1 x 0.9 cm in diameter. Dilated bronc hus extending more centrally from this region of consolidation on the prior study now also appears co nsolidated and tubular. 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 No new airspace opacities, pulmonary edema or pleural effusion. Heart size is normal. No pericardial effusion. Thoracic aorta is normal in caliber. No pathologically enlarged thoracic lymphadenopathy. V isualized upper abdomen is unremarkable. Moderate to severe thoracic spondylosis with chronic mild an terior wedging of a few mid to lower thoracic vertebral bodies. IMPRESSION: 1. 3 regions of consolidation in the bilateral upper lobes, 2 of which have decreased in size with co rresponding increase in the surrounding volume loss consistent with likely evolving sequela of prior infection with secondary atelectasis. The third lesion demonstrates some improvement peripherally but with new central extension of a more tubular region of a prior which would again be most consistent with involving sequela of chronic infection and associated bronchocele. Would recommend continued fol low-up with additional low-dose noncontrast chest CT in 3 months. 2. Moderate emphysema. Reviewed, dictated and finalized at location A. IMPRESSION: 1. 3 regions of consolidation in the bilateral upper lobes, 2 of which have dec reased in size with corresponding increase in the surrounding volume loss consi stent with likely evolving sequela of prior infection with secondary atelectasi s. The third lesion demonstrates some improvement peripherally but with new wesley tral extension of a more tubular region of a prior which would again be most co nsistent with involving sequela of chronic infection and associated bronchocele . Would recommend continued follow-up with additional low-dose noncontrast ches t CT in 3 months. 2. Moderate emphysema.
--- OUTSIDE RECORDS SUMMARY | 2025-01-30 14:00 | XMS_ITS | Referral Summary ---
Author Organization [facility] Address [address] [place] [address] Care Team Providers Care Field Supervisor Name Role Phone Cole Lindsay DO Primary Care Provider [phone] Encounters Date Type Department Care Team Description 12/04/2024 9:38 AM CDT - 12/04/2024 11:59 PM CDT Hospital Encounter [facility] Res[facility] [address] [place] [address] Discharge Disposition: Discharge to home or self care from Last 3 Months Active Problems Problem Noted Date Diagnosed Date Chronic prostatitis 05/20/2011 Trichomoniasis, unspecified 05/20/2011 Social History Tobacco Use Types Packs/Day Years Used Date Smoking Tobacco: Never Assessed Sex and Gender Information Value Date Recorded Sex Assigned at Not on file 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 Gender Identity Not on file Sexual Orientation Not on file Plan of Treatment Not on file Procedures Procedure Name Priority Date/Time Associated Diagnosis Comments PULMONARY FUNCTION TEST (PFT) Routine 12/04/2024 11:12 AM CDT Encounter for disability determination from Last 3 Months Insurance [place] [employer] Member Subscriber Plan / Payer (Ef fective 2024-Present) Name:Abraham Funes Relation to Subscriber:Self Name:Abraham Funes Payer ID:Not on file Group ID:Not on file Type:OTHER Address: [place] [id number] [facility] Care Teams Field Supervisor Relationship Specialty Start Date End Date Cole Lindsay DO [address] [facility] [address] [place] [address] PCP - General Internal Medicine 11/02/24
--- OUTSIDE RECORDS SUMMARY | 2025-01-30 14:00 | XMS_ITS | Clinical Summary ---
Author Organization [facility] Address [address] [place] [address] Care Team Providers Care Implementation Coordinator Name Role Phone Cole Lindsay DO Primary Care Provider [phone] Active Problems Problem Noted Date Diagnosed Date Chronic prostatitis 05/20/2011 Trichomoniasis, unspecified 05/20/2011 Encounters Date Type Department Care Team Description 12/04/2024 9:38 AM CDT - 12/04/2024 11:59 PM CDT Hospital Encounter [facility] Respiratory [address] [place] [address] Discharge Disposition: Discharge to home or self care from Last 3 Months Surgical History Surgery Date Site/Laterality Comments [place] UNLISTED PROCEDURE ABDOME N PERITONEUM & OMENTUM Hernia Repair - (Added by TW Conv) [place] PROSTATE NEEDLE BIOPSY AN Y APPROACH Needle Biopsy Of Prostate - Benign (Added by TW Conv) Family History Medical History Relation Name Comments Diabetes Other Diabetes [facility] - (Added by TW Conv) Heart disease Other Heart Disease - (Added by TW Conv) Stroke Other Stroke Syndrome - (Added by TW Conv) Relation Name Status Comments Other Social History Tobacco Use Types Packs/Day Years Used Date Smoking Tobacco: Never Assessed Sex and Gender Information Value Date Recorded Sex Assigned at Not on file 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 Gender Identity Not on file Sexual Orientation Not on file Obstetrics History Plan of Treatment Health Maintenance Due Date Last Done Comments Colon Cancer Screening-Colonoscopy 1968 Depression Screening 1968 Hepatitis C Screening 1968 Prostate Cancer Screening-PSA 1968 DTaP/Tdap/Td Vaccine (1 - Tdap) 1979 Hepatitis B Screening 1986 Regular Well Visit/Exam 18-64 1986 Zoster Vaccine (1 of 2) 2018 Influenza Vaccine (#1) 2025 Pneumococcal vaccine <65 Aged Out No longer eligible based on patient's age to complete this topic Procedures Procedure Name Priority Date/Time Associated Diagnosis Comments PULMONARY FUNCTION TEST (PFT) Routine 12/04/2024 11:12 AM CDT Encounter for disability determination from Last 3 Months Insurance [place] [employer] Member Subscriber Plan / Payer (Ef fective 2024-Present) Name:Abraham Funes Relation to Subscriber:Self Name:Abraham Funes Payer ID:Not on file Group ID:Not on file Type:OTHER Address: [address] Care Teams Implementation Coordinator Relationship Specialty Start Date End Date Cole Lindsay DO [address] [address] PCP - General Internal Medicine 11/02/24
--- OUTSIDE RECORDS SUMMARY | 2025-01-30 14:00 | XMS_ITS | Clinical Summary ---
Author Organization [facility] Address [address] [place] [address] Care Team Providers Care Spinner Box Name Role Phone Unavailable Primary Care Provider [...]
== END 2025-01-30 13:55 | disposition home or self-care (01) ==
PROVIDERS: PCP Internal Medicine; Visit Provider Internal Medicine Critical Care Medicine
DX: R91.8 Other nonspecific abnormal finding of lung field (principal); J43.9 Emphysema, unspecified
CPT/HCPCS: 71250

== ENCOUNTER 2025-04-30 08:14 | Outpatient (CLI) | payer MEDICARE, SELFPAY ==
--- OUTSIDE RECORDS SUMMARY | 2025-04-30 08:27 | XMS_ITS | Clinical Summary ---
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
[2025-04-30 09:23] LABS: Hematocrit 45.7 % (42.0-52.0); Hemoglobin 14.4 g/dL (14.0-18.0); Immature Granulocyte Percent A 0.6 % (0-0.5); Lymphocytes Absolute Auto 1.91 K/mm3 (0.9-3.2); Mean Corpuscular HGB Conc 31.5 g/dl (32-36); Mean Corpuscular Hemoglobin 30.1 pg (26-34); Mean Corpuscular Volume 95.4 fl (80-100); Nucleated Red Blood Cells Absolute Auto 0.000 K/mm3 (0.0-0.012); Nucleated Red Blood Cells Perc 0.0 % (0.0-0.2); Platelet Count Result 466 k/mm3 (150-375); Red Blood Count 4.79 M/mm3 (4.6-6.20); White Blood Count 8.9 K/mm3 (4.5-10.0)
[2025-04-30 09:50] LABS: Alanine Aminotransferase 19 U/L (6-50); Albumin Level 4.3 g/dL (3.5-5.1); Alkaline Phosphatase 82 U/L (38-126); Anion Gap 8 mmol/L (4-12); Aspartate Amino Transferase 24 U/L (17-59); Bilirubin,Total 0.5 mg/dL (0.2-1.3); Blood Urea Nitrogen 19 mg/dL (9-20); Calcium 9.1 mg/dL (8.4-10.2); Carbon Dioxide 27 mmol/L (22-30); Chloride 105 mmol/L (98-107); Cholesterol 141 mg/dL (0-200); Estimated Glomerular Filt Rate > 60; Glucose 93 mg/dL (65-110); HDL Direct 50 mg/dL; Potassium 4.2 mmol/L (3.4-5.0); Sodium 140 mmol/L (137-145); Total Protein 7.2 g/dL (6.3-8.2); Triglycerides 60 mg/dL (<150)
[2025-04-30 10:25] LABS: Prostate Specific Antigen 1.0 ng/mL (< OR = 4.0)
== END 2025-04-30 08:15 | disposition home or self-care (01) ==
PROVIDERS: PCP Internal Medicine; Visit Provider Internal Medicine
DX: R63.4 Abnormal weight loss (principal); J44.1 Chronic obstructive pulmonary disease with (acute) exacerbation; E78.5 Hyperlipidemia, unspecified; Z12.5 Encounter for screening for malignant neoplasm of prostate
CPT/HCPCS: 36415; 80053; 80061; 84153; 85025; G0103

== ENCOUNTER 2025-05-07 09:12 | Outpatient (CLI) | payer MEDICARE, MEDICAID, SELFPAY ==
--- NOTE | ~2025-05-07 | CT_ITS ---
PROCEDURE(S): CT diagnostic chest without contrast INDICATION(S): Multifocal pneumonia COMPARISON(S): November 28, 2023 TECHNIQUE: Multiplanar images were obtained without the use of IV contrast. CT dose reduction was utilized. FINDINGS: Lungs: There are spiculated masslike structures in both apices which are believed to relate to fibrosis. The one in the left upper lobe is now cavitary, where previously it was not. Therefore, the size has decreased somewhat. There is a small amount of postobstructive atelectasis versus fibrosis seen peripheral to this structure. On the right, the unchanged mass itself in the right upper lobe is now producing chronic atelectasis associated with some pleural thickening laterally. In addition, there is now a fairly sizable area of cavitary air space disease in the right upper lobe medial, posterior, and superior to the mass. The tubular structure in the superior segment of the left lower lobe is again noted. There are lines from the structure to the posterior pleura, which shows mild thickening. A portion of this structure/area of density obliquely relates to chronic atelectasis. This otherwise appears to be unchanged Heart/mediastinum: Within normal limits Large airways: Clear. Soft tissues: No significant abnormality is seen. Upper abdomen: No significant abnormality is seen. IMPRESSION: 1. Progressive adhesions to pleura and chronic atelectasis on both sides. 2. There is a new sizable area of chronic atelectasis versus infiltrate, wedge shaped in appearance and extending to the pleura in the right upper lobe. There are multiple cavitations within this. 3. The masslike area of probable fibrosis on the left has cavitated. The one on the right appears unchanged. Neoplasm, including malignancy, is not excluded from this appearance. Reviewed, dictated and finalized at location A. IMPRESSION: 1. Progressive adhesions to pleura and chronic atelectasis on both sides. 2. There is a new sizable area of chronic atelectasis versus infiltrate, wedge shaped in appearance and extending to the pleura in the right upper lobe. There are multiple cavitations within this. 3. The masslike area of probable fibrosis on the left has cavitated. The one on the right appears unchanged. Neoplasm, including malignancy, is not excluded f rom this appearance.
--- OUTSIDE RECORDS SUMMARY | 2025-05-07 09:54 | XMS_ITS | Clinical Summary ---
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
== END 2025-05-07 09:13 | disposition home or self-care (01) ==
PROVIDERS: PCP Internal Medicine; Visit Provider Internal Medicine Critical Care Medicine
DX: R91.8 Other nonspecific abnormal finding of lung field (principal); J94.8 Other specified pleural conditions; J98.11 Atelectasis; J98.4 Other disorders of lung
CPT/HCPCS: 71250